=== PATIENT | female | born 1950 | race Caucasian/White ===

== ENCOUNTER 2021-01-17 16:14 | Emergency (ER) | payer MEDICARE, OTHER, SELFPAY ==
[2021-01-17 16:26] VITALS: BP 117/70; PULSE 74; RESP 18; TEMP 36.7; O2SAT 97; BMI 31.8
--- NOTE | 2021-01-17 16:32 | XRR_ITS ---
PROCEDURE INFORMATION: Exam: XR Right Ankle Exam date and time: 01/17/2021 4:35 PM Age: 70 years old Clinical indication: Injury or trauma; Fall; Blunt trauma; Ankle; Right; Additional info: Right ankle injury and pain TECHNIQUE: Imaging protocol: XR Right ankle. Views: 3 or more views. Total images: 3 COMPARISON: No relevant prior studies available. FINDINGS: Bones/joints: No visible acute osseous abnormality, fracture, subluxation, or dislocation. No radiographically visible joint effusion. Ankle mortise intact. Soft tissues: Soft tissue swelling over the lateral malleolus. XR/XR ankle RT min 3V* [id number] IMPRESSION: 1. Soft tissue swelling over the lateral malleolus. 2. No visible fracture.
--- NOTE | 2021-01-17 16:33 | ED_ITS ---
HPI - Extremity Problem General: Chief complaint: Extremity Injury, Lower Stated complaint: R ANKLE INJURY Time Seen by Provider: 01/17/21 16:32 History of Present Illness: HPI Narrative: Patient is a 70-year-old female comes to the ED with a right ankle injury. Patient says she was on her Gator and stepped off to get out of it and felt her right ankle pop and then had some pain. She now has tenderness and swelling right ankle. She rates the pain an 8 out of 10. Associated symptoms: Deny chest pain, fever(s) or rash Review of Systems Const: Denies: fever(s), chills or fatigue Eyes: Denies: change in vision or eye discomfort ENMT: Denies: throat pain, odynophagia, nasal discharge or nasal congestion Card: Denies: chest pain, palpitations, edema, swelling of feet/ankles, dyspnea on exertion or orthopnea Resp: Denies: dyspnea, productive cough or non-productive cough GI: Denies: abdominal pain, nausea, vomiting, diarrhea, constipation or hematochezia : Denies: flank pain, dysuria or hematuria Musc: Reports: extremity pain (right ankle) and extremity swelling (right ankle); Denies: neck pain or back pain Skin/Breast: Denies: rash or new lesions Neuro: Denies: headache(s), numbness in extremities or weakness in extremities Physical Exam Const: COMMON NORMALS: no acute distress, patient oriented x3 and alert GENERAL APPEARANCE: cooperative and comfortable HENMT: COMMON NORMALS: normocephalic HEAD & SCALP: normocephalic MOUTH: Normal oral and palatal mucosa present THROAT: posterior oropharynx normal and uvula midline Neck/C-Spine: COMMON NORMALS: supple GENERAL: Yes normal visual inspection Resp: COMMON NORMALS: normal respiratory effort, No retractions, No use of accessory muscles and clear to auscultation bilaterally AUSCULTATION: clear to auscultation bilaterally Cardio: COMMON NORMALS: regular rate, regular rhythm, S1 normal heart sound present, S2 normal heart sound present, No gallops present (Cardio), No clicks present (Cardio), No murmurs present (Cardio) and Peripheral pulses 2+ throughout RATE: regular rate RHYTHM: regular rhythm HEART SOUNDS: S1 normal heart sound present and S2 normal heart sound present PERIPHERAL PULSES: Peripheral pulses 2+ throughout GI: COMMON NORMALS: Normal to inspection, nondistended, normoactive bowel sounds present, Soft to palpation, non-tender and no masses PALPATION: Yes Soft to palpation : COMMON NORMALS: Yes no CVA tenderness BLADDER/KIDNEY EXAM: Yes no CVA tenderness Back/Pelvis: COMMON NORMALS: no CVA tenderness Extremity: GENERAL: Yes normal exam except as noted RIGHT LOWER EXTREMITY: Yes foot & digits Right ankle: Yes inspection (no visible deformity. swelling around lateral malleolus.), Yes palpation (tenderness around lateral malleolus.), Yes ROM (limited due to pain) and Yes neurovascular exam (intact) Neuro: COMMON NORMALS: patient oriented x3 and moves all extremities SENSORIUM/ORIENTATION: Yes alert Skin: GENERAL SKIN EXAM: dry skin Course Vital Signs: Vital signs: Vital Signs Temperature 98.1 F 01/17/21 16:26 Pulse Rate 74 01/17/21 16:26 Respiratory Rate 18 01/17/21 16:26 Blood Pressure 117/70 01/17/21 16:26 Pulse Oximetry 97 01/17/21 16:26 MDM - Extremity (Nontraumatic) Imaging Data^: Xray Ortho: Attestation: I personally reviewed and interpreted this imaging study as follows: My impression: right ankle xray-no acute fractures or findings. Discharge Plan Discharge Patient Disposition: Home Clinical Impression: Ankle sprain and strain Condition: Stable Discharge Orders: Discharge ED (Routine); Ordered 01/17/21 Ordered By: Live Rowell Referrals: Samuel Ryan, [Primary Care Provider] - Discharge Diet: Regular Discharge Activity: Increase activity as tolerated and Use walker/crutches as instructed Patient Instructions: Ankle Sprain (ED) Activity Restrictions/Additional Instructions: Follow-up with medical provider as directed. Use crutches to help ambulate and limit weightbearing for the next 2 to 3 days. Rest, ice and elevate right foot. Take [id number] ibuprofen or Aleve for pain. Return to the ER or your medical provider if condition worsens. Please read and understand discharge instructions. If any questions, please ask. Coding Level of Care Code ED Home Visit Field Care Manager for Cheryl Fwd Exam Comprehensive
== END 2021-01-17 17:17 | disposition home or self-care (01) ==
PROVIDERS: Emergency Provider Physician Assistant; PCP Family Medicine
DX: S93.401A Sprain of unspecified ligament of right ankle, initial encounter (principal); S96.911A Strain of unspecified muscle and tendon at ankle and foot level, right foot, initial encounter; X58.XXXA Exposure to other specified factors, initial encounter
CPT/HCPCS: 73610; 99283; E0114

== ENCOUNTER 2022-03-14 19:49 | Inpatient (IN) | payer MEDICARE, OTHER, SELFPAY ==
--- NOTE | 2022-03-14 19:52 | ECG_ITS ---
[facility] Test Date: 2022-03-15 Pat Name: Slime Teague Department: Room: 267 Gender: Female Register Of Deeds: : 1950 Requested By: Yunier Willett Order Number: [id number] Jose Eduardo MD: Noemi Lugo M.D. Measurements Intervals [place] Rate: 54 P: -2 ID: 162 QRS: 2 QRSD: 85 T: -3 QT: 452 QTc: 429 Interpretive Statements SINUS BRADYCARDIA Compared to ECG 03/15/2022 03:11:51 No significant changes Electronically Signed On 03-15-2022 22:52:57 CDT by Noemi Lugo M.D. [id number]
--- NOTE | 2022-03-14 19:52 | XRR_ITS ---
PROCEDURE INFORMATION: Exam: XR Chest Exam date and time: 03/14/2022 8:08 PM Age: 71 years old Clinical indication: Chest wall pain; Additional info: Cp TECHNIQUE: Imaging protocol: Radiologic exam of the chest. Views: 1 view. COMPARISON: No relevant prior studies available. FINDINGS: Lungs: Lungs are unremarkable. Pleural spaces: No pneumothorax and no evident pleural fluid. Heart/Mediastinum: See Vasculature finding. Vasculature: Aortic calcifications are noted. Mediastinal width and heart size are within normal limits. Bones/joints: Bones show no acute findings. XR/XR chest 1V portable [id number] IMPRESSION: No acute findings.
[2022-03-14 19:57] VITALS: BP 147/84; PULSE 78; RESP 18; TEMP 36.1; O2SAT 96; BMI 30.1
--- NOTE | 2022-03-14 20:21 | W.ED.GENADLT ---
HPI - General Adult General: Chief complaint: Recheck/Abnormal Lab/Rx Stated complaint: DR sent over due to blood work and EKG Time Seen by Provider: 03/14/22 20:14 History of Present Illness: Patient is a 71-year-old female with no significant past medical history presents emergency room for concerns of elevated troponin. On Friday, patient reporrted lightheaded and had a bout of chest pressure. Earlier today, patient went to see her PCP and had routine blood work that was done found to have a troponin to 256. Patient was also noted to have an abnormal EKG he was told to come emergency room. Patient tells me that she has not had any chest pressure since Friday. Patient denies any cough, no sore throat, palpitation, nausea/vomiting diarrhea melena/medic easier. Patient reports external fatigue and shortness of breath this week. No other focal complaints at this time. No prior history of cardiac history, no family history cardiac history, no pleuritic chest pain, stabbing chest pain radiation to the back, no recent immobilization or surgery. Onset: 4 days ago of chest pressure, troponin abnormal x 1 day Duration:ongoing Location:home Severity:moderate Associated symptoms: Reports chest pain; Deny dyspnea, nausea, rash, palpitations or vomiting Review of Systems Const: Denies: fever(s) or chills Eyes: Denies: change in vision ENMT: Denies: mouth pain Card: Reports: chest pain; Denies: palpitations Resp: Denies: dyspnea or non-productive cough GI: Denies: abdominal pain, nausea, vomiting or diarrhea : Denies: dysuria Musc: Denies: extremity pain Skin/Breast: Denies: rash or new lesions Neuro: Reports: other (+light-headedness); Denies: weakness in extremities Psych: Reports: other (Normal mood) Danny/Lymph: Denies: easy bruising PFSH ED PFSH: Medical History (Updated 03/17/22 @ 09:12 by Noemi Lugo MD) Ankle sprain HTN (hypertension) Social History (Updated 03/15/22 @ 15:53 by Noemi Lugo MD) Smoking and tobacco status: never smoked Alcohol intake: never Substance/Drug Use: never Physical Exam Const: COMMON NORMALS: alert HENMT: COMMON NORMALS: atraumatic HEAD & SCALP: atraumatic MOUTH: moist mucous membranes not abnormal Eye: COMMON NORMALS: EOMs intact bilaterally and conjunctivae normal CONJUNCTIVA: Yes conjunctivae normal Neck/C-Spine: COMMON NORMALS: full ROM and supple Resp: COMMON NORMALS: normal respiratory effort and clear to auscultation bilaterally AUSCULTATION: clear to auscultation bilaterally Cardio: COMMON NORMALS: regular rate RATE: regular rate OTHER: 2+ radial pulses b/l GI: COMMON NORMALS: Soft to palpation and non-tender PALPATION: Yes Soft to palpation Extremity: COMMON NORMALS: full ROM Neuro: SENSORIUM/ORIENTATION: Yes alert MOTOR EXAM: No Abnormal motor strength present and Other motor observations present (no focal motor deficits) Psych: COMMON NORMALS: speech normal SPEECH: Yes normal speech MOOD & AFFECT: Yes euthymic mood Course Vital Signs: Vital signs: Vital Signs Temperature 98.4 F 03/17/22 07:26 Pulse Rate 60 03/17/22 07:26 Respiratory Rate 12 03/17/22 07:26 Blood Pressure 103/66 03/17/22 07:26 Pulse Oximetry 95 03/17/22 07:26 [facility] - General Adult Medical Decision Making 71-year-old female without any significant past medical history presents emergency room with lightheadedness and chest pressure on Friday. Hemodynamically stable. EKG nonischemic currently. Troponin 259 similar to outpatient blood workup. S/p ASA and lovenox. Currently chest pain free. Disposition: admission Lab Data : 03/17/22 02:48 03/17/22 02:48 Radiology Impressions Chest X-Ray 03/14/22 19:52 IMPRESSION: No acute findings. Laboratory Results WBC 10.0 10^3/uL (4.0-10.0) 03/14/22 20:28 RBC 4.44 10^6/uL (4.1-5.3) 03/14/22 20:28 Hgb 14.0 g/dL (11.5-15.3) 03/14/22 20:28 Hct 39.7 % (37.0-47.0) 03/14/22 20:28 MCV 89.4 fl (81-99) 03/14/22 20:28 MCH 31.5 pg (28.0-34.0) 03/14/22 20:28 MCHC 35.3 g/dL (30.0-36.0) 03/14/22: RDW 12.5 % (12.1-15.1) 03/14/22: Plt Count 317 10^3/cmm (130-400) 03/14/22 MPV 10.0 fL (7.4-10.4) 03/14/22: Neut % (Auto) 49.8 % 03/14/22: Lymph % (Auto) 37.7 % 03/14/22: [place] % (Auto) 9.3 % 03/14/22: Eos % (Auto) 2.7 % 03/14/22 Baso % (Auto) 0.4 % 03/14/22 Neut # (Auto) 4.96 10^3/uL (1.8-7.7) 03/14/22 Lymph # (Auto) 3.8 10^3/uL (0.8-4.8) 03/14/22 Ashe # (Auto) 0.9 10^3/uL (0.2-0.9) 03/14/22 Eos # (Auto) 0.3 10^3/uL (0.0-0.8) 03/14/22 Baso # (Auto) 0.0 10^3/uL (0.0-0.1) 03/14/22 Nucleated RBC % (auto) 0 % 03/14/22 Nucleated RBCs # 0.0 /100WBC 03/14/22 Sodium 137 mmol/L (136-145) 03/14/22: Potassium 3.8 mmol/L (3.5-5.1) 03/14/22: Chloride 102 mmol/L (98-107) 03/14/22: Carbon Dioxide 24 mmol/L (22-29) 03/14/22 Anion Gap 14.8 (5-19) 03/14/22: BUN 17 mg/dL (8-23) 03/14/22: Creatinine 0.7 mg/dL (0.5-0.9) 03/14/22 GFR Calculation Not Reportable 06/23/22 20:28 Glucose 84 mg/dL (65-115) 03/14/22 20:28 Calculated Osmolality 285 mOsm/kg (285-295) 03/14/22 20:28 Calcium 8.7 mg/dL (8.5-10.5) 03/14/22 20:28 Total Bilirubin 0.4 mg/dL (0.15-1.2) 03/14/22 20:28 AST 21 U/L (0-32) 03/14/22 20:28 ALT 19 U/L (0-33) 03/14/22 20:28 Alkaline Phosphatase 113 IU/L (35-105) H 03/14/22 20:28 Troponin T Baseline 259 ng/L (0-10) H* 03/14/22 20:28 NT-Pro-B Natriuret Pep 84 pg/mL (0-125) 03/14/22 20:28 Total Protein 7.2 g/dL (6.6-8.7) 03/14/22 20:28 Albumin 4.2 g/dL (3.5-5.2) 03/14/22 20:28 Globulin 3.0 g/dL (1.3-4.6) 03/14/22 20:28 Imaging Data Other Imaging: Radiologist's impression: [employer] [address] XRay Report Signed Patient: Slime Teague Unit #: [id number] : 1950 Age/Sex: 71 / F ADM Date: 03/14/22 Loc: ER Room/Bed: Attending Dr: Ordering Provider/Ordering MD: Yunier Willett MD Date of Service: 03/14/22 Procedure(s): XR chest 1V portable [id number] Accession Number(s): [id number] Report Number: [id number] PROCEDURE INFORMATION: Exam: XR Chest Exam date and time: 03/14/2022 8:08 PM Age: 71 years old Clinical indication: Chest wall pain; Additional info: Cp TECHNIQUE: Imaging protocol: Radiologic exam of the chest. Views: 1 view. COMPARISON: No relevant prior studies available. FINDINGS: Lungs: Lungs are unremarkable. Pleural spaces: No pneumothorax and no evident pleural fluid. Heart/Mediastinum: See Vasculature finding. Vasculature: Aortic calcifications are noted. Mediastinal width and heart size are within normal limits. Bones/joints: Bones show no acute findings. XR/XR chest 1V portable 19403 IMPRESSION: No acute findings. ? Dictated By: Daniel Farris MD Signed By: Daniel Farris MD Signed Date/Time: 03/14/222135 DD/ 07 Discharge Plan Discharge Patient Disposition: Admitted As Inpatient Admit Provider: Roberth Davis Clinical Impression: Non-ST elevation ME (NSTEMI), Chest pain Condition: Stable Discharge Diet: Cardiac Discharge Activity: Increase activity as tolerated Coding Level of Care Code ED Table Assembler Metal for Chg Fwd Exam Comprehensive
[2022-03-14 20:35] LABS: Basophils % 0.4 %; Eosinophils # 0.3 10^3/uL (0.0-0.8); Eosinophils % 2.7 %; Hematocrit 39.7 % (37.0-47.0); Lymphocytes # 3.8 10^3/uL (0.8-4.8); Lymphocytes % 37.7 %; Mean Corpuscular HGB Conc 35.3 g/dL (30.0-36.0); Mean Corpuscular Hemoglobin 31.5 pg (28.0-34.0); Mean Corpuscular Volume 89.4 fl (81-99); Monocytes # 0.9 10^3/uL (0.2-0.9); Monocytes % 9.3 %; Neutrophils # 4.96 10^3/uL (1.8-7.7); Neutrophils % 49.8 %; Nucleated Red Blood Cells % 0 %; Platelet Count 317 10^3/cmm (130-400); Red Blood Count 4.44 10^6/uL (4.1-5.3); Red Cell Distribution Width 12.5 % (12.1-15.1)
[2022-03-14 20:36] VITALS: BP 154/71; PULSE 68; RESP 18; O2SAT 97
--- NOTE | 2022-03-14 20:48 | USCV_ITS ---
Slime Teague Age: 71 Gender: F : 1950 Exam Date: 03/14/2022 23:52 Ordering Phys: Roberth Davis MD Technologist: FAMILIA [place] [facility] [place]: Chest pain. BP: 166 / 68 HR: 61 Rhythm: Sinus Technical Quality: Adequate MEASUREMENTS (Male / Female) Normal Values 2D ECHO LV Diastolic Diameter PLAX 3.5 cm 4.2 - 5.9 / 3.9 - 5.3 cm LV Systolic Diameter PLAX 2.1 cm IVS Diastolic Thickness 1.3 cm 0.6 - 1.0 / 0.6 - 0.9 cm IVS Systolic Thickness 1.7 cm LVPW Diastolic Thickness 0.9 cm 0.6 - 1.0 / 0.6 - 0.9 cm LVPW Systolic Thickness 1.2 cm LVOT Diameter 1.8 cm LV Ejection Fraction 2D Teich 71.1 % LV Ejection Fraction MOD 2C 80.5 % LV Ejection Fraction 2C AL 81.1 % LA Diameter 3.5 cm LA Width 3.5 cm LA Height 5.4 cm RA Width 5.1 cm RA Height 5.9 cm Aorta at Sinotubular Diameter 2.6 cm IVC Diameter 1.3 cm M-MODE Aortic Annulus Diameter 2.9 cm LA Ao Ratio MM 1.3 MV E Point Septal Separation 0.3 cm DOPPLER AV Peak Velocity 99.0 cm/s LVOT Peak Velocity 101.0 cm/s AV Area Cont Eq vti 2.6 cm squared AV Area Cont Eq pk 2.6 cm squared MV Peak Velocity 108.0 cm/s MV Area PHT 3.0 cm squared Mitral E to A Ratio 0.9 MV E' Velocity 45.0 cm/s Mitral E to MV E' Ratio 8.8 Mitral E to LV E' Lateral Ratio 7.8 Mitral E to LV E' Septal Ratio 10.1 TR Peak Velocity 294.0 cm/s TR Peak Gradient 34.6 mmHg TV Peak E Velocity 53.0 cm/s Right Atrial Pressure 10.0 mmHg Pulmonary Artery Systolic Pressu 44.6 mmHg PV Peak Velocity 95.0 cm/s RV Acceleration Time 0.1 s RV Ejection Time 0.4 s RV AcT/ET 0.3 FINDINGS Left Ventricle Normal left ventricular size, systolic function and wall thickness, with no regional wall motion abnormalities. Left ventricular ejection fraction is estimated at 70 %. Normal diastolic function. Right Ventricle Normal right ventricular size and systolic function. Right ventricular systolic pressure 41 mmHg. Right Atrium Normal right atrial size. Left Atrium Upper normal left atrial size. Mitral Valve Structurally normal mitral valve. No mitral valve stenosis. Mild mitral valve regurgitation. Aortic Valve Structurally normal trileaflet aortic valve. No aortic valve stenosis. Trace to mild aortic valve regurgitation. Tricuspid Valve Structurally normal tricuspid valve. No tricuspid valve stenosis. Mild to moderate tricuspid valve regurgitation. Pulmonic Valve Structurally normal pulmonic valve. No pulmonary valve stenosis. Trace pulmonary valve regurgitation. Pericardium No pericardial effusion. Aorta Normal size aortic root and proximal ascending aorta. IVC Normal IVC dimension with >50% respiratory change of the inferior vena cava. CONCLUSIONS 1. Normal left ventricular size, systolic function and wall thickness, with no regional wall motion abnormalities. Left ventricular ejection fraction is estimated at 70 %. Normal diastolic function. 2. Normal right ventricular size and systolic function. 3. Mild to moderate tricuspid valve regurgitation. 4. Trace to mild aortic valve regurgitation. 5. Mild mitral valve regurgitation. 6. Mild pulmonary hypertension with pulm artery pressure estimated 41 mmHg. 7. No prior similar studies to compare. Noemi Lugo MD (Electronically Signed) Final Date: 15 March 2022 13:46 S
--- NOTE | 2022-03-14 20:48 | PC.NURSE ---
Report made with elder abuse hotline
--- NOTE | 2022-03-14 20:49 | P.HP_ITS ---
Providers/Chief Complaint Primary Care Provider: Samuel Ryan DO Chief Complaint: DR sent over due to blood work and EKG History of Present Illness Slime Teague is a 71 year old female with no significant past medical history was sent by the primary care physician for evaluation of elevated troponin. When I talked to the patient she was complaining of mild chest discomfort more of a pressure-like started this Friday it was accompanied with radiation to the left shoulder, and she has lately also experience worsening fatigue. Currently she is denying any palpitation diaphoresis, fever cough shortness of breath, nausea vomiting. Upon arrival in the ER she was worked up for above-mentioned: Pertinent imaging studies: X-ray chest: No acute findings EKG: Sinus rhythm Labs: WBC 10, H&H:14/39 , plt : 317 , serum sodium 137 serum potassium 3.8, BUN/ serum creatinine:17/ 0.7 HbA1c 6.6, lipid panel: T , total cholesterol:205 , LDL cholesterol: 113 , HDL :58 Troponin: 268, 259 proBNP:84 Review of Systems General: Reports: 10 or more systems reviewed and unremarkable except in HPI and below Narrative: 67-year-old currently not in acute distress being admitted for chest pain evaluation Const: Denies: fever(s), chills, body aches, change in appetite or diaphoresis Card: Denies: palpitations, edema, swelling of feet/ankles, dyspnea on exertion, orthopnea or leg pain with exertion Resp: Denies: dyspnea, productive cough, wheezing or pain on inspiration GI: Denies: abdominal pain, nausea, vomiting, diarrhea or constipation : Denies: flank pain Musc: Denies: back pain, extremity pain or extremity swelling Neuro: Denies: headache(s), difficulty walking or confusion Medications/Allergies Home Medications Medication Instructions Recorded Confirmed Last Taken Type fluoxetine 20 mg capsule 20 mg PO DAILY 03/14/22 03/14/22 03/14/22 08:00 History Allergies Allergy/AdvReac Type Severity Reaction Status Date / Time No Known Allergies Allergy Verified 01/17/21 16:26 PFSH Acute PFSH: Medical History Ankle sprain Social History Smoking and tobacco status: current every day smoker Alcohol intake: never Substance/Drug Use: never Vitals/I&O/Wt Last Vital Signs Temp 97.0 F L 03/14/22 19:57 Pulse 68 03/14/22 20:36 Resp 18 03/14/22 20:36 BP 154/71 03/14/22 20:36 Pulse Ox 97 03/14/22 20:36 Weight last 48 hrs Weight 77.111 kg Physical Exam Const: COMMON NORMALS: patient oriented x3 HENMT: COMMON NORMALS: normocephalic and atraumatic HEAD & SCALP: normocephalic and atraumatic Resp: COMMON NORMALS: clear to auscultation bilaterally AUSCULTATION: clear to auscultation bilaterally Cardio: COMMON NORMALS: regular rate, regular rhythm, S1 normal heart sound present, S2 normal heart sound present, No gallops present (Cardio), No murmurs present (Cardio), No rub (Cardio) and Peripheral pulses 2+ throughout RATE: regular rate RHYTHM: regular rhythm HEART SOUNDS: S1 normal heart sound present and S2 normal heart sound present PERIPHERAL PULSES: Peripheral pulses 2+ throughout GI: COMMON NORMALS: Normal to inspection, nondistended, normoactive bowel sounds present, Soft to palpation, non-tender, No hepatosplenomegaly present and no masses AUSCULTATION: Yes normoactive bowel sounds PALPATION: Yes Soft to palpation and Yes No hepatosplenomegaly present RECTAL EXAM: deferred Extremity: COMMON NORMALS: no clubbing, cyanosis or edema and no pedal edema Neuro: COMMON NORMALS: patient oriented x3 Data : 03/14/22 20:28 03/14/22 20:28 A&P Assessment and plan (1) Non-ST elevation NV (NSTEMI): Status: Acute (2) Chest pain: Status: Acute Plan 71 year old female with no significant past medical history was sent by the primary care physician for evaluation of elevated troponin. When I talked to the patient she was complaining of mild chest discomfort more of a pressure-like started this Friday it was accompanied with radiation to the left shoulder, and she has lately also experience worsening fatigue. Currently she is denying any palpitation diaphoresis, fever cough shortness of breath, nausea vomiting. Assessment: NSTEMI: It is quite possible that she had an event early during this week and c urrently troponin is on the downward trend. Dyslipidemia. Plan: Follow 2D echo Follow repeat HbA1c Currently on ACS protocol (continue therapeutic Lovenox, aspirin statin beta- taylor, sublingual nitro as needed ) Amlodipine 5 mg po daily Cardiology On Board CODE STATUS: Full code DVT prophylaxis: On Lovenox Attestations Medical Necessity Statement*: Patient is to in hospital for management of NSTEMI. Anticipated length of stay greater than 2 midnight. Time Spent in Patient Care: Greater than 35 minutes (>than 50% of time spent in counselling and/or direct pt care on unit) . Coding Level of Care Code Acute Electrical Troubleshooter for g Fwd Exam Detailed Diagnoses Non-ST elevation NV (NSTEMI) I21.4 Chest pain R07.9
[2022-03-14 21:04] LABS: Alanine Aminotransferase 19 U/L (0-33); Albumin Level 4.2 g/dL (3.5-5.2); Alkaline Phosphatase 113 IU/L (35-105); Aspartate Amino Transferase 21 U/L (0-32); Blood Urea Nitrogen 17 mg/dL (8-23); Calcium 8.7 mg/dL (8.5-10.5); Carbon Dioxide 24 mmol/L (22-29); Chloride 102 mmol/L (98-107); Creatinine Clr Calc Pharmacy 62.5007; Glucose 84 mg/dL (65-115); NT Pro B Type Natriuretic Pept 84 pg/mL (0-125); Osmolality Calculated 285 mOsm/kg (285-295); Sodium 137 mmol/L (136-145); Total Bilirubin 0.4 mg/dL (0.15-1.2); Total Protein 7.2 g/dL (6.6-8.7)
[2022-03-14 21:09] LABS: Anion Gap 14.8 (5-19); Potassium 3.8 mmol/L (3.5-5.1)
[2022-03-14 21:13] LABS: Troponin(5th) Baseline 259 ng/L (0-10)
--- NOTE | 2022-03-14 21:52 | ECG_ITS ---
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 Measurements Intervals [place] Rate: 66 P: 51 NH: 151 QRS: 37 QRSD: 77 T: 45 QT: 414 QTc: 434 Interpretive Statements SINUS RHYTHM POSSIBLE LEFT ATRIAL ENLARGEMENT [-0.1mV P-WAVE IN V1/V2] SEPTAL MYOCARDIAL INFARCTION , OF INDETERMINATE AGE [40+ ms Q WAVE IN V1/V2] No previous ECG available for comparison Electronically Signed On 03-14-2022 22:31:06 CDT by Scott Huntley M.D. [email or web address] [id number]
[2022-03-14] MEDS: aspirin 325 mg Tablet PO (22:04)
[2022-03-14] MEDS: atorvastatin 40 mg Tablet PO (22:05)
[2022-03-14] MEDS: enoxaparin 80 mg/0.8 mL Syringe SUBCUT (22:05)
[2022-03-14 22:07] VITALS: BP 161/75; PULSE 65; RESP 16; O2SAT 98
[2022-03-14 22:43] VITALS: BMI 32.8
[2022-03-14] MEDS: metoprolol tartrate 25 mg Tablet 12.5 MG PO (22:45)
[2022-03-14 22:47] VITALS: BP 166/68; PULSE 63; RESP 23; TEMP 36.8; O2SAT 99
[2022-03-14 23:09] VITALS: PULSE 61
[2022-03-14 23:37] LABS: Troponin 5 2HR 247.7 ng/L (0-10); Troponin 5 2HR Delta -11.3 ABS# (0-10)
[2022-03-15] VITALS (8 sets, daily range): BP systolic 102–120; BP diastolic 60–79; PULSE 56–63; RESP 14–22; TEMP 36.3–36.9; O2SAT 95–98
--- NOTE | 2022-03-15 01:52 | ECG_ITS ---
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 Measurements Intervals [place] Rate: 56 P: 56 AR: 158 QRS: 51 QRSD: 89 T: 58 QT: 451 QTc: 437 Interpretive Statements SINUS BRADYCARDIA POSSIBLE LEFT ATRIAL ENLARGEMENT [-0.1mV P-WAVE IN V1/V2] Compared to ECG 03/14/2022 20:34:16 Sinus rhythm no longer present Myocardial infarct finding no longer present Electronically Signed On 03-15-2022 23:13:35 CDT by Noemi Lugo M.D. [id number]
[2022-03-15 03:48] LABS: Basophils # 0.1 10^3/uL (0.0-0.1); Basophils % 0.6 %; Eosinophils # 0.3 10^3/uL (0.0-0.8); Eosinophils % 3.9 %; Hematocrit 39.9 % (37.0-47.0); Hemoglobin 13.9 g/dL (11.5-15.3); Lymphocytes % 38.4 %; Mean Corpuscular HGB Conc 34.8 g/dL (30.0-36.0); Mean Corpuscular Hemoglobin 31.2 pg (28.0-34.0); Mean Corpuscular Volume 89.7 fl (81-99); Monocytes # 0.7 10^3/uL (0.2-0.9); Monocytes % 9.1 %; Neutrophils # 3.75 10^3/uL (1.8-7.7); Neutrophils % 47.7 %; Nucleated Red Blood Cells % 0 %; Platelet Count 294 10^3/cmm (130-400); Red Blood Count 4.45 10^6/uL (4.1-5.3); Red Cell Distribution Width 12.7 % (12.1-15.1); White Blood Count 7.9 10^3/uL (4.0-10.0)
[2022-03-15 04:17] LABS: Alanine Aminotransferase 16 U/L (0-33); Albumin Level 3.8 g/dL (3.5-5.2); Alkaline Phosphatase 105 IU/L (35-105); Anion Gap 12.1 (5-19); Aspartate Amino Transferase 23 U/L (0-32); Blood Urea Nitrogen 15 mg/dL (8-23); Calcium 8.6 mg/dL (8.5-10.5); Carbon Dioxide 26 mmol/L (22-29); Chloride 105 mmol/L (98-107); Globulin 2.8 g/dL (1.3-4.6); Glucose 104 mg/dL (65-115); Magnesium 2.2 mg/dL (1.7-2.3); Osmolality Calculated 289 mOsm/kg (285-295); Potassium 4.1 mmol/L (3.5-5.1); Sodium 139 mmol/L (136-145); Thyroid Stimulating Hormone 2.65 uIU/mL (0.27-4.20); Total Bilirubin 0.6 mg/dL (0.15-1.2); Total Protein 6.6 g/dL (6.6-8.7)
[2022-03-15 04:22] LABS: Troponin 5 6HR 194.8 ng/L (0-10)
[2022-03-15 04:35] LABS: Estmated Average Glucose 137; Hemoglobin A1C 6.4 % (4.0-6.0)
[2022-03-15] MEDS: enoxaparin 80 mg/0.8 mL Syringe SUBCUT ×2 (09:22→20:50)
[2022-03-15] MEDS: metoprolol tartrate 25 mg Tablet 12.5 MG PO ×2 (09:23→20:49)
[2022-03-15] MEDS: amlodipine 5 mg Tablet PO (09:23)
[2022-03-15] MEDS: aspirin 81 mg EC Tablet PO (09:23)
--- NOTE | 2022-03-15 13:35 | PM.CONSULT ---
Providers/Reason For Consult Consulting Physician/Specialty*: Dr. Lugo, cardiology Reason for Consult*: NSTEMI Attending Physician: Delia Nice MD Primary Care Provider: Samuel Ryan DO History of Present Illness History of Present Illness Slime Teague is a 71 year old female with no prior h/o CAD, CHF, HTN, DM-2 or dyslipidemia. 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 She has felt tired and fatigued ever since. She went to Dr. Ryan and EKG and troponin was done. She was sent to ER for further evaluation. No palpitation diaphoresis, fever cough shortness of breath, nausea vomiting. Upon arrival in the ER, X-ray chest: No acute findings. EKG: Sinus rhythm/sinus bradycardia with no significant ST-T wave changes Labs: WBC 10, H&H:14/39 , plt : 317 , serum sodium 137 serum potassium 3.8, BUN/ serum creatinine:17/ 0.7 HbA1c 6.4, lipid panel: T , total cholesterol:205 , LDL cholesterol: 113 , HDL :58. Troponin: 268--> 259-->195. proBNP:84 She is complaining of mild chest discomfort while eating today. Review of Systems General: Reports: 10 or more systems reviewed and unremarkable except in HPI and below Narrative: 67-year-old currently not in acute distress being admitted for chest pain evaluation Const: Denies: fever(s), chills, body aches, change in appetite or diaphoresis Card: Denies: palpitations, edema, swelling of feet/ankles, dyspnea on exertion, orthopnea or leg pain with exertion Resp: Denies: dyspnea, productive cough, wheezing or pain on inspiration GI: Denies: abdominal pain, nausea, vomiting, diarrhea or constipation : Denies: flank pain Musc: Denies: back pain, extremity pain or extremity swelling Neuro: Denies: headache(s), difficulty walking or confusion Medications/Allergies Home Medications Medication Instructions Recorded Confirmed Last Taken Type fluoxetine 20 mg capsule 20 mg PO DAILY 03/14/22 03/14/22 03/14/22 08:00 History hydrocortisone 1 % topical cream 1 applic TOPICAL BID PRN 03/15/22 03/15/22 03/13/22 21:00 History (Cortisone (hydrocortisone)) Allergies Allergy/AdvReac Type Severity Reaction Status Date / Time No Known Allergies Allergy Verified 01/17/21 16:26 Current Medications Generic Name Dose Route Start Last Admin Trade Name Trevin PRN Reason Stop Dose Admin Amlodipine Besylate 5 mg 03/15/22 09:00 03/15/22 09:23 Amlodipine 5 Mg Tablet PO 5 mg DAILY KOLE Administration Aspirin 81 mg 03/15/22 09:00 03/15/22 09:23 Aspirin 81 Mg Ec Tablet PO 81 mg DAILY KOLE Administration Atorvastatin Calcium 40 mg 03/14/22 21:00 03/14/22 22:05 Atorvastatin 40 Mg Tablet PO 40 mg BEDTIME KOLE Administration Enoxaparin Sodium 80 mg 03/15/22 09:00 03/15/22 09:22 Enoxaparin 80 Mg/0.8 Ml Syringe SUBCUT 80 mg Q12H KOLE Administration Metoprolol Tartrate 12.5 mg 03/14/22 21:00 03/15/22 09:23 Metoprolol Tartrate 25 Mg Tablet PO 12.5 mg BID@0900,2100 KOLE Administration PFSH Acute PFSH: Medical History Ankle sprain Social History (Updated 03/15/22 @ 15:53 by Noemi Lugo MD) Smoking and tobacco status: never smoked Alcohol intake: never Substance/Drug Use: never Vitals/I&O/Wt Last Vital Signs Temp 97.7 F 03/15/22 08:00 Pulse 63 03/15/22 08:00 Resp 16 03/15/22 08:00 BP 120/79 03/15/22 08:00 Pulse Ox 97 03/15/22 08:00 03/14/22 03/15/22 03/15/22 22:59 06:59 14:59 Intake Total 360 / 360 Balance 360 / 360 Weight last 48 hrs Weight 185 lb 3.2 oz Weight 170 lb Physical Exam Narrative: GENERAL: obese woman laying in bed in no acute distress HEENT: Extraocular movement intact. No pallor or icterus. NECK: central trachea, No JVD. No carotid bruit. CARDIOVASCULAR SYSTEM: S1-S2 regular. No murmur rubs or gallops. RESPIRATORY SYSTEM: Chest clear to auscultation. No wheezes, rhonchi or rubs heard. No use of accessory muscles. ABDOMEN: Soft, nontender and nondistended. Normal bowel sounds present. EXTREMITIES: No cyanosis or clubbing or edema. No signs of chronic venous insufficiency. 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 No focal neurological deficits. SKIN: Normal turgor and temperature. PSYCH: Normal insight and judgment. Data : 03/15/22 03:39 03/15/22 03:39 Other Labs: Baseline at 2 hours to 45 and at 6 hours 195. NT proBNP 84. Lipid panel with total cholesterol 205, triglyceride 171, LDL 113 and HDL 58. TSH 2.65. A&P Assessment and plan (1) Non-ST elevation [place] (NSTEMI): -Plan for LHC in morning Risks and benefits were discussed with the patients. Alternate management options were discussed with the patient as well. Possible complications including risk of heart attack stroke and , coronary perforation, arrhythmia, cardiac tamponade in urgent CABG were discussed with the patient as well. Status: Acute (2) Elevated hemoglobin A1c: Status: Acute (3) Anxiety: Status: Acute Consult Attestations Time Spent in Patient Care: 16 - 35 minutes Coding Level of Care Code Acute Rn Internship for [facility] Tato Diagnoses Non-ST elevation [place] (NSTEMI) I21.4 Elevated hemoglobin A1c R73.09 Anxiety F41.9
--- NOTE | 2022-03-15 14:05 | P.PN_ITS ---
Subjective Subjective: Seen this morning. Patient is awaiting cardiology consult. She is currently n.p.o. and chest pain-free. No acute events overnight. Vitals/I&O/Wt Last Vital Signs Temp 98.5 F 03/15/22 12:00 Pulse 56 L 03/15/22 12:00 Resp 16 03/15/22 12:00 BP 102/66 03/15/22 12:00 Pulse Ox 98 03/15/22 12:00 03/14/22 03/15/22 03/15/22 22:59 06:59 14:59 Intake Total 360 / 360 Balance 360 / 360 Weight last 48 hrs Weight 84.005 kg Weight 77.111 kg Physical Exam Narrative: General: Alert oriented x3, patient seen sitting up in bed appearing comfortable at this time. HEENT: Normocephalic, atraumatic, EOMI, breathing room air Cardio: Regular rate rhythm, normal S1-S2, Respiratory: Good bilateral air entry, no wheezes no rhonchi appreciated GI: Abdomen soft, nontender, nondistended, bowel sounds + Behavior: Appropriate and cooperative Extremities: No lower extremity edema edema, no cyanosis Data : 03/15/22 03:39 03/15/22 03:39 A&P Assessment and plan (1) Non-ST elevation [place] (NSTEMI): Status: Acute (2) Chest pain: Status: Acute Plan 71 year old female with no significant past medical history was sent by the primary care physician for evaluation of elevated troponin.? When I talked to the patient she was complaining of mild chest discomfort more of a pressure-like started this Friday it was accompanied with radiation to the left shoulder, and she has lately also experience worsening fatigue. Currently she is denying any palpitation diaphoresis, fever cough shortness of breath, nausea vomiting. Assessment: NSTEMI: It is quite possible that she had an event early during this week and currently troponin is on the downward trend. Dyslipidemia. Plan: Follow 2D echo Follow repeat HbA1c Currently on ACS protocol (continue therapeutic Lovenox, aspirin statin beta- taylor, sublingual nitro as needed ) Amlodipine 5 mg po daily Cardiology On Board CODE STATUS: Full code DVT prophylaxis: On Lovenox N.p.o. at midnight for angio in a.m potentially. Attestations Medical Necessity Statement*: Patient will be staying in the hospital for greater than 48 hours for management of NSTEMI. 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
[2022-03-15] MEDS: hydrocortisone 2.5% cream 28 gm 1 APPLIC TOPICAL (15:34)
[2022-03-15] MEDS: pantoprazole DR 40 mg Tablet PO (15:35)
[2022-03-15] MEDS: calcium carbonate 500 mg Chew Tablet PO (15:35)
[2022-03-15] MEDS: sodium chloride 0.9% 1,000 ML 50 ML IV (20:50)
[2022-03-15] MEDS: atorvastatin 40 mg Tablet PO (20:50)
[2022-03-16] VITALS (108 sets, daily range): BP systolic 111–153; BP diastolic 52–77; PULSE 50–151; RESP 7–33; TEMP 36.6–36.9; O2SAT 94–99
[2022-03-16 03:57] LABS: Basophils % 0.5 %; Eosinophils # 0.3 10^3/uL (0.0-0.8); Eosinophils % 4.8 %; Hemoglobin 13.3 g/dL (11.5-15.3); Lymphocytes # 2.9 10^3/uL (0.8-4.8); Lymphocytes % 44.5 %; Mean Corpuscular HGB Conc 34.1 g/dL (30.0-36.0); Mean Corpuscular Volume 90.9 fl (81-99); Mean Platelet Volume 9.9 fL (7.4-10.4); Monocytes # 0.6 10^3/uL (0.2-0.9); Monocytes % 9.1 %; Neutrophils # 2.64 10^3/uL (1.8-7.7); Neutrophils % 40.9 %; Nucleated Red Blood Cells % 0 %; Platelet Count 274 10^3/cmm (130-400); Red Blood Count 4.29 10^6/uL (4.1-5.3); Red Cell Distribution Width 12.7 % (12.1-15.1); White Blood Count 6.5 10^3/uL (4.0-10.0)
[2022-03-16 04:22] LABS: Alanine Aminotransferase 23 U/L (0-33); Albumin Level 3.5 g/dL (3.5-5.2); Alkaline Phosphatase 103 IU/L (35-105); Anion Gap 10.4 (5-19); Aspartate Amino Transferase 24 U/L (0-32); Blood Urea Nitrogen 15 mg/dL (8-23); Calcium 8.5 mg/dL (8.5-10.5); Carbon Dioxide 27 mmol/L (22-29); Chloride 106 mmol/L (98-107); Globulin 2.8 g/dL (1.3-4.6); Glucose 116 mg/dL (65-115); Osmolality Calculated 290 mOsm/kg (285-295); Potassium 4.4 mmol/L (3.5-5.1); Sodium 139 mmol/L (136-145); Total Bilirubin 0.8 mg/dL (0.15-1.2); Total Protein 6.3 g/dL (6.6-8.7)
[2022-03-16] MEDS: diphenhydrAMINE 50 mg Capsule PO (07:03)
--- NOTE | 2022-03-16 07:15 | XACV_ITS ---
Exam Room: [facility] Ht: 160 cm Wt: 84 kg BSA: 1.96 m2 Gender: Female : 1950 Exam Priority: Routine Procedure(s): Procedure Description: Diagnostic procedure Procedure Description: PCI procedure Procedure Description: Drug Eluting Coronary Stent Procedure Description: PTCA Procedure Description: Miscellaneous Procedure Description: ACT Procedure Description: Coronary Angiography Diagnostic Cath Status: Urgent Diagnostic Findings * 71-year-old woman presented with vague chest discomfort and left arm and forearm pain along with extreme fatigue that happened 4 to 5 days prior to presentation. Fifth generation Troponin T done at PCPs office was elevated and subsequently down trended from 268 to 195 at 6 hours. EKG showed sinus bradycardia with no significant ST-T wave changes. * Angiography shows a right coronary dominant system. * Normal-sized left anterior descending artery. Short eccentric hazy appearing 60 to 70% stenosis (AVELINO 3 flow). * Short left main with no stenosis. * Normal caliber circumflex artery with one major obtuse marginal without any stenosis. * Normal sized right coronary artery with minor luminal irregularities. * Case was discussed and images were reviewed with Dr. Huntley. PCI Status: Elective PCI Indication: NSTE - ACS Interventional Findings * Procedure detail: We engaged left main artery with XB 3.0 guide catheter. IV heparin was administered to maintain ACT above 250s. Angiogram showed haziness consistent with possible thrombus given troponin elevation and symptoms. 0.014 run-through guidewire was used to cross proximal LAD stenosis. We predilated stenosis with 2.75 x 12 mm noncompliant balloon. This was followed by placement of 3.0 x 15 mm resolute Cecelia drug-eluting stent. At this time final angiogram was performed that showed excellent stent expansion, no residual stenosis and AVELINO-3 flow. Guidewire and guide catheter were removed. 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 * Proximal Left Anterior Descendin% stenosis treated with a AB TREK 2.75X12 RX BALLOON, and MDVictor M R CECELIA 3.0X15 SPENCER. Conclusions 1. Severe 2. , 3. hazy proximal LAD stenosis s/p successful revascularization with SPENCER x1. 4. Proximal Left Anterior Descending was treated with a Balloon, and Drug Eluting Stent. Recommendations * Statin and aspirin 81mg lifelong, if tolerated. * Continue Plavix 75mg p.o. daily for at least one year. * Order echocardiogram. * Outpatient cardiology follow-up in 4 weeks. Interventional RX Recommendation: PCI w/o planned CABG Diagnostic RX Recommendation: PCI w/o planned CABG Anticoagulation: Heparin LV EDP: 26 mmHg Left Ventriculography Findings: * Left Ventriculogram not performed to minimize contrast use. Pressures Phase:Rest AO : 100 / 62 ( 81 ) @ 9:21:00 AM 157 / 72 ( 103 ) @ 9:31:00 AM 157 / 54 ( 94 ) @ 9:31:00 AM 141 / 70 ( 96 ) @ 9:34:00 AM 146 / 77 ( 106 ) @ 9:58:00 AM LV : 157 / 6 / 26 @ 9:30:00 AM 157 / 3 / 26 @ 9:31:00 AM Hemodynamic Findings LVEDP is 26 mmHg. There is no gradient across the aortic valve. Valves Phase:DefaultPhase AV : 0.0 @ 9:19:21 AM AV Mean Gradient: 0.0 @ 9:19:21 AM Clinical Evaluation EBL: 5mL-10mL Procedural Details Procedure Consent Obtained. Admit Source: In Patient. Pre-Procedure Time Out. Identified patient by full name and date of as verbalized by the patient/guarantor. Does the consent match the physician's order: Yes. Accurate & Complete Informed Consent: Yes. Inpatient/Outpatient History & Physical on Chart: Yes. If H&P is completed, is and addenduem needed: N/A; If yes, is the addendum complete: N/A. Visualize and Verify Site with Patient/Guarantor: N/A. Relevant Radiology Images available: N/A. The risks, benefits, and alternatives of sedation and/or procedure were discussed by physician. The patient agrees to continue. Procedure started. [facility] Clinical Fraility Score: 2: Well. Certified Corporate Travel Executive Indications:NSTEMI. Chest Pain Symptom Assessment: Atypical Angina. Correct patient, site and procedure confirmed by cath team. Current diagnosis: NSTEMI. PERRLA. Strong, equal hand bench patternmaker metal bilaterally. Lungs clear x 5 lobes. IV Site on Arrival: 20 gauge in the right anticubital. IV Fluids: 0.9% NaCl at KVO. 550 mL infused prior to filling station laborer. Pre Procedural Pulses: right radial was 3+. Pre Procedural Pulses: bilateral dorsalis pedis was 3+. Oxygen started at 2liters/min via nasal canula. right groin was prepped with chloroprep then draped in the usual sterile fashion. right radial was prepped with chloroprep then draped in the usual sterile fashion. Physician notified. Baseline sample Acquired. HR: 51 BPM. Physician arrived. Physician scrubbed in. Immediate Pre-Procedure Time Out. Correct Patient: Yes; Correct Procedure: Yes; Correct Site: Yes; Correct Patient Position: Yes; Correct Supplies: Yes; Dried Flammable Prep: Yes; Blood Products Available: N/A. Lidocaine 1% infiltrated to the right radial. Arterial access obtained. A 5 ecuadorean TIG catheter in over wire. Multiple views taken of left coronary artery. Catheter redirected to the RCA. Multiple views taken of right coronary artery. EDP Sample taken: LV 157/6,26; HR: 54 BPM; SpO2: 98%. Pullback taken: LV 157/3,26; AO 157/72(103); Mean: 0mmHg, Peak to Peak: 0mmHg, SEP: 12sec/min; HR: 53 BPM; SpO2: 98%. Catheter removed over the standard wire. Dr Huntley notified to come review cine films. Side port of sheath attached to Normal Saline flush at KVO to maintain patency. Dr. Huntley scrubbed in to perform intervention. 6 ecuadorean XB 3 guide catheter was inserted over the wire. Runthrough guidewire was advanced through the guide catheter to lesion in the Prox LAD. Balloon inserted to lesion in the prox LAD. Inflation number : 1 A AB TREK 2.75X12 RX BALLOON was prepped and advanced across the Prox LAD , then inflated to 12 SALOMON for 0:16 seconds. Balloon out. Stent inserted to lesion in the prox LAD. Inflation Number : 2 A JIMENA Valentine CECELIA 3.0X15 SPENCER -Lot Number# [id number] Exp 01/03/25 was prepped and advanced across the Prox LAD. The stent was deployed at 12 SALOMON for 0:17 seconds. Stent balloon out over wire. Results checked. ACT drawn. Results 352 seconds. Therapeutic limits - pre-heparin administration 90-150 seconds and monitoring heparin during a vascular procedure >250 seconds. Wire out. Guide catheter out over standard wire. Post Procedure: Pulses reassessed and unchanged. PERRLA. Strong, equal hand bench patternmaker metal bilaterally. No VTE prophylaxis required. Medication's Wasted: Lidocaine 1% = 3 mL. Medication's Wasted: Nitro = 49.8 mg. Total IV fluids: 133 mL. 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 Complications: none. Estimated blood loss: 5mL-10mL. Responsiveness - Normal response to verbal stimuli; alert and oriented, PERRLA. Airway - Unaffected, no intervention required; spontaneous ventilation. Circulation: W/N/L, pulses unchanged. Nausea/Vomiting: No. Procedure completed. Patient transferred by wheelchair to ICU. A TR Band was successful obtaining hemostatsis at the Right Radial artery insertion site. Medication's Wasted: Heparin = 2000 u. Vital chart was stopped. Access Site Site: Right Radial artery Sheath Size: 6 Fr Hemostasis Method: TR Band Hemostasis Success: Successful Procedure Medications Start: 8:06 AM Stop: 8:06 AM Medication: Versed Amount: 1 mg Route: I.V. Start: 8:06 AM Stop: 8:06 AM Medication: Fentanyl Amount: 25 mcg Route: I.V. Start: 8:14 AM Stop: 8:14 AM Medication: Nitrogylcerin Amount: 200 mcg Route: I.A. Start: 8:15 AM Stop: 8:15 AM Medication: Heparin Amount: 5000 units Route: I.V. Start: 8:27 AM Stop: 8:27 AM Medication: Versed Amount: 1 mg Route: I.V. Start: 8:54 AM Stop: 8:54 AM Medication: Versed Amount: 1 mg Route: I.V. Start: 8:54 AM Stop: 8:54 AM Medication: Fentanyl Amount: 25 mcg Route: I.V. Start: 8:55 AM Stop: 8:55 AM Medication: Heparin Amount: 4000 units Route: I.V. Start: 9:03 AM Stop: 9:03 AM Medication: Aggrastat 12.5 mg/250 mL Amount: 42 ml Route: I.V. bolus Start: 9:04 AM Stop: 9:04 AM Medication: Aggrastat 12.5 mg/250 mL Amount: 15.1 ml/hr Route: I.V. bolus Start: 9:10 AM Stop: 9:10 AM Medication: Plavix Amount: 600 mg Route: P.O. I, the attending physician, have reviewed and verified all procedure medications. Yes, all medications given per verbal order History/Risk Factors Hypertension: No Dyslipidemia: No Peripheral Arterial Disease (PAD): No Myocardial Infarction (CO): No Obesity: Yes Renal Disease: No Tobacco Use: Current/Recent(w/in 1 year) Prior Interventions PCI: No CABG: No Valve Surgery: No Report Signatures Interventional Workflow Finalized by Scott Huntley MD on 03/26/2022 11:50 AM Diagnostic Workflow Finalized by Noemi Lugo MD on 03/19/2022 04:31 PM
--- NOTE | 2022-03-16 08:06 | W.PM.OPSUD ---
Surgery/Procedure H&P Update DATE OF PROCEDURE: March 16, 2022 DATE H&P PERFORMED: 03/15/22 H&P UPDATE INFORMATION: I have reviewed H&P completed within last 30 days, I have examined patient prior to procedure and No changes to prior documentation PREOP DIAGNOSIS: NSTEMI PRIMARY INDICATION FOR PROCEDURE: NSTEMI PLANNED PROCEDURE: Operation Date: 03/16/22 08:00 Proposed Procedures p Cardiac Catheterization(Left) - Noemi Lugo MD PATIENT REASSESSED PRIOR TO SEDATION, WITH NO CHANGE NOTED: Yes PHYSICAL EXAM: alert, oriented x 3, clear to auscultation bilaterally and regular rate & rhythm AIRWAY EVAL/ANESTHESIA PLAN: normal airway, ASA III, Monitored Anesthesia, Local Anesthesia, Risks, benefits & alternatives of sedation and/or procedure discussed and Patient agrees to continue as planned
--- NOTE | 2022-03-16 09:59 | PC.NURSE ---
ICU nurse received pathet from woods laborer staff at 0930. Patient is alert and oriented to person, place, time, and situation. BP: 139/69, HR: 53, SPO2: 97, Temp: 97.8. RIght radial puncture site covered with TR band and no signs of bleeding present.
[2022-03-16] MEDS: sodium chloride 0.9% 1,000 ML 100 ML IV (10:31)
[2022-03-16] MEDS: amlodipine 5 mg Tablet PO (10:34)
[2022-03-16] MEDS: aspirin 81 mg EC Tablet PO (10:34)
[2022-03-16] MEDS: pantoprazole DR 40 mg Tablet PO (10:34)
--- NOTE | 2022-03-16 14:29 | PM.PN ---
Subjective Subjective: Seen this morning. She is status post catheterization procedure. Currently on tirofiban drip. Doing well and has no complaints at this time. Vitals/I&O/Wt Last Vital Signs Temp 97.8 F 03/16/22 10:00 Pulse 58 L 03/16/22 10:40 Resp 15 03/16/22 10:40 BP 134/74 03/16/22 10:40 Pulse Ox 97 03/16/22 10:40 03/15/22 03/16/22 03/16/22 22:59 06:59 14:59 Intake Total 240 / 840 684.167 / 684.167 Balance 240 / 840 684.167 / 684.167 Weight last 48 hrs Weight 84.005 kg Weight 77.111 kg Physical Exam Narrative: General: Alert oriented x3, no acute distress HEENT: Normocephalic, atraumatic, EOMI, breathing room air Cardio: Regular rate rhythm, normal S1-S2, Respiratory: Good bilateral air entry, no wheezes no rhonchi appreciated GI: Abdomen soft, nontender, nondistended, bowel sounds + Behavior: Appropriate and cooperative Extremities: No lower extremity edema edema, no cyanosis, TR band in place on right wrist Data : 03/16/22 03:50 03/16/22 03:50 A&P Assessment and plan (1) Anxiety: Status: Acute (2) Elevated hemoglobin A1c: Status: Acute (3) Non-ST elevation [place] (NSTEMI): Status: Acute (4) Chest pain: Status: Acute Plan 71 year old female with no significant past medical history was sent by the primary care physician for evaluation of elevated troponin.? When I talked to the patient she was complaining of mild chest discomfort more of a pressure-like started this Friday it was accompanied with radiation to the left shoulder, and she has lately also experience worsening fatigue. Currently she is denying any palpitation diaphoresis, fever cough shortness of breath, nausea vomiting. Assessment: NSTEMI: It is quite possible that she had an event early during this week and currently troponin is on the downward trend. Dyslipidemia. Plan: Echo complete. No wall motion abnormalities noted. Patient went for angiogram today and received 1 stent to proximal LAD. Continue aspirin, Plavix, statin, beta-taylor Amlodipine 5 mg po daily Cardiology On Board CODE STATUS: Full code DVT prophylaxis: On Lovenox Attestations Medical Necessity Statement*: Continue to monitor in hospital today. Potential discharge in a.m. if patient continues to do well. 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
--- NOTE | 2022-03-16 14:39 | PC.NURSE ---
TR band removed: Dressed site with clear tegaderm and gauze. site is unremarkable. No signs of bleeding 0930- 13mL 1000- 11mL 1030- 9mL 1100- 7mL 1120- 5mL 1150- 3 mL 1330- 0 mL
--- NOTE | 2022-03-16 15:48 | PC.NURSE ---
Report called to Joy in [facility]. Patient transferred to room 275.
[2022-03-16] MEDS: acetaminophen 325 mg Tablet 650 MG PO (19:08)
--- NOTE | 2022-03-16 19:15 | PC.NURSE ---
Right wrist cath site assessed. Dressing is dry and intact, site is soft, no hematoma present.
[2022-03-16] MEDS: metoprolol tartrate 25 mg Tablet 12.5 MG PO (21:23)
[2022-03-16] MEDS: atorvastatin 40 mg Tablet PO (21:23)
[2022-03-17] VITALS (7 sets, daily range): BP systolic 103–128; BP diastolic 56–72; PULSE 58–80; RESP 12–26; TEMP 36.7–37.3; O2SAT 91–95
[2022-03-17 03:10] LABS: Basophils % 0.6 %; Eosinophils # 0.3 10^3/uL (0.0-0.8); Eosinophils % 3.8 %; Hematocrit 36.7 % (37.0-47.0); Hemoglobin 12.6 g/dL (11.5-15.3); Lymphocytes # 2.5 10^3/uL (0.8-4.8); Mean Corpuscular HGB Conc 34.3 g/dL (30.0-36.0); Mean Corpuscular Volume 90.4 fl (81-99); Mean Platelet Volume 9.8 fL (7.4-10.4); Monocytes # 0.7 10^3/uL (0.2-0.9); Monocytes % 9.8 %; Neutrophils # 3.32 10^3/uL (1.8-7.7); Neutrophils % 48.5 %; Nucleated Red Blood Cells % 0 %; Platelet Count 264 10^3/cmm (130-400); Red Blood Count 4.06 10^6/uL (4.1-5.3); Red Cell Distribution Width 12.6 % (12.1-15.1); White Blood Count 6.8 10^3/uL (4.0-10.0)
[2022-03-17 03:29] LABS: Alanine Aminotransferase 25 U/L (0-33); Albumin Level 3.4 g/dL (3.5-5.2); Alkaline Phosphatase 104 IU/L (35-105); Anion Gap 13.3 (5-19); Aspartate Amino Transferase 34 U/L (0-32); Blood Urea Nitrogen 13 mg/dL (8-23); Carbon Dioxide 24 mmol/L (22-29); Chloride 107 mmol/L (98-107); Globulin 2.8 g/dL (1.3-4.6); Glucose 102 mg/dL (65-115); Osmolality Calculated 290 mOsm/kg (285-295); Potassium 4.3 mmol/L (3.5-5.1); Sodium 140 mmol/L (136-145); Total Bilirubin 0.5 mg/dL (0.15-1.2); Total Protein 6.2 g/dL (6.6-8.7)
[2022-03-17] MEDS: amlodipine 5 mg Tablet PO (09:01)
[2022-03-17] MEDS: clopidogrel 75 mg Tablet PO (09:02)
[2022-03-17] MEDS: aspirin 81 mg EC Tablet PO (09:02)
[2022-03-17] MEDS: pantoprazole DR 40 mg Tablet PO (09:02)
[2022-03-17] MEDS: metoprolol tartrate 25 mg Tablet 12.5 MG PO (09:02)
--- NOTE | 2022-03-17 09:08 | P.PN_ITS ---
Subjective Subjective: s/p SPENCER to Px LAD yesterday Medications: Reviewed: Yes Medication Review Details: Current Medications Acetaminophen (Acetaminophen 325 Mg Tablet) 650 mg PO Q6H PRN PRN Reason: Mild/Mod Pain Or Temp >/= 101 Last Admin: 03/16/22 19:08 Dose: 650 mg Documented by: Al Hydrox/Mg Hydrox/Simethicone (Snlf-Fiv-Dbxoijmdo-Yunior 30 Ml Udc) 30 ml PO Q15M PRN PRN Reason: INDIGESTION Amlodipine Besylate (Amlodipine 5 Mg Tablet) 5 mg PO DAILY [facility] Last Admin: 03/17/22 09:01 Dose: 5 mg Documented by: Aspirin (Aspirin 81 Mg Ec Tablet) 81 mg PO DAILY [facility] Last Admin: 03/17/22 09:02 Dose: 81 mg Documented by: Atorvastatin Calcium (Atorvastatin 40 Mg Tablet) 40 mg PO BEDTIME [facility] Last Admin: 03/16/22 21:23 Dose: 40 mg Documented by: Atropine Sulfate (Atropine 1 Mg/Ml Sdv 1 Ml) 0.5 mg IVP PRN PRN PRN Reason: Symptomatic bradycardia Bisacodyl (Bisacodyl 5 Mg Tablet) 10 mg PO DAILY PRN; Protocol PRN Reason: Constipation (see protocol) Calcium Carbonate (Calcium Carbonate 500 Mg Chew Tablet) 500 mg PO Q4H PRN PRN Reason: INDIGESTION Last Admin: 03/15/22 15:35 Dose: 500 mg Documented by: Clopidogrel Bisulfate (Clopidogrel 75 Mg Tablet) 75 mg PO DAILY [facility] Last Admin: 03/17/22 09:02 Dose: 75 mg Documented by: Fentanyl (Fentanyl 50 Mcg/Ml Inj 2ml) 50 mcg IVP PRN PRN PRN Reason: Prior to sheath removal Hydrocortisone (Hydrocortisone 2.5% Cream 28 Gm) 1 applic TOPICAL QID PRN PRN Reason: ITCHING Last Admin: 03/15/22 15:34 Dose: 1 applic Documented by: Sodium Chloride (Sodium Chloride 0.9%) 1,000 mls @ 100 mls/hr IV .Q10H [facility] Last Admin: 03/17/22 06:11 Dose: Not Given Documented by: Magnesium Hydroxide (Magnesium Hydroxide 30 Ml Udc) 30 ml PO DAILY PRN PRN Reason: CONSTIPATION Metoprolol Tartrate (Metoprolol Tartrate 25 Mg Tablet) 12.5 mg PO BID@0900,2100 [facility] Last Admin: 03/17/22 09:02 Dose: 12.5 mg Documented by: Naloxone HCl (Naloxone 0.4 Mg/Ml Sdv) 0.1 mg IVP Q2M PRN PRN Reason: RESPIRATORY RATE < 8/MIN Nitroglycerin (Nitroglycerin 0.4 Mg Sublingual Tablet) 0.4 mg SUBLINGUAL Q5M PRN PRN Reason: CHEST PAIN Ondansetron HCl (Ondansetron 2 Mg/Ml Sdv 2 Ml) 4 mg IVP Q8H PRN PRN Reason: vomiting, or N/V if npo Pantoprazole Sodium (Pantoprazole Dr 40 Mg Tablet) 40 mg PO DAILY [facility] Last Admin: 03/17/22 09:02 Dose: 40 mg Documented by: Temazepam (Temazepam 15 Mg Capsule) 15 mg PO BEDTIME PRN PRN Reason: INSOMNIA Vitals/I&O/Wt Last Vital Signs Temp 98.4 F 03/17/22 07:26 Pulse 60 03/17/22 07:26 Resp 12 03/17/22 07:26 BP 103/66 03/17/22 07:26 Pulse Ox 95 03/17/22 07:26 03/16/22 03/17/22 03/17/22 22:59 06:59 14:59 Intake Total 2180 / 3264.167 950 / 4214.167 Balance 2180 / 3264.167 950 / 4214.167 Weight last 48 hrs Weight 170 lb 3.2 oz Physical Exam Narrative: GENERAL: obese woman laying in bed in no acute distress HEENT: Extraocular movement intact. No pallor or icterus. NECK: central trachea, No JVD. No carotid bruit. CARDIOVASCULAR SYSTEM: S1-S2 regular. No murmur rubs or gallops. RESPIRATORY SYSTEM: Chest clear to auscultation. No wheezes, rhonchi or rubs heard. No use of accessory muscles. ABDOMEN: Soft, nontender and nondistended. Normal bowel sounds present. EXTREMITIES: No cyanosis or clubbing or edema. No signs of chronic venous insufficiency. AD OPERATIONS ASSOCIATE: Patient is alert oriented ?3. No focal neurological deficits. SKIN: Normal turgor and temperature. PSYCH: Normal insight and judgment. Data : 03/17/22 02:48 03/17/22 02:48 A&P Assessment and plan (1) Non-ST elevation NV (NSTEMI): Px LAD with hazy appearing 60-70% stenosis and underwent balloon angioplasty and SPENCER X 1 placement -continue ASA, plavix , statin -continue metoprolol succinate 12.5 mg on discahrge -NTG SL as needed -f/u with Aissatou in 1 week and with in 2 months -stable to be discharged today Status: Acute (2) HTN (hypertension): Patient's blood pressure is at goal. She has been compliant with her medications and denies having any side effects from medications. She was advised again on importance of salt restriction, DASH diet and exercise in managing her blood pressure. 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
--- NOTE | 2022-03-17 10:43 | PC.SOCIAL ---
IMM update IMM updated with patient. Verbalized an understanding. Copy Pg 2 provided. Initialled, dated, timed, and placed in chart.
--- NOTE | 2022-03-17 12:20 | PM.DCS ---
Discharge Providers Date of Admission: 03/14/22 20:41 Date of Discharge: March 17, 2022 Attending Provider at Admission: Roberth Davis MD Attending Provider at Discharge: Delia Nice MD Primary Care Provider: Samuel Ryan DO Diagnoses at Discharge Discharge Diagnosis (1) Non-ST elevation NM (NSTEMI): Status: Acute (2) HTN (hypertension): Status: Acute (3) Elevated hemoglobin A1c: Status: Acute (4) Anxiety: Status: Acute Reason for Visit Reason for Visit: DR sent over due to blood work and EKG Brief History: As per HPI Slime Teague is a 71 year old female with no significant past medical history was sent by the primary care physician for evaluation of elevated troponin.? When I talked to the patient she was complaining of mild chest discomfort more of a pressure-like started this Friday it was accompanied with radiation to the left shoulder, and she has lately also experience worsening fatigue. Currently she is denying any palpitation diaphoresis, fever cough shortness of breath, nausea vomiting. Upon arrival in the ER she was worked up for above-mentioned: Pertinent imaging studies: X-ray chest: No acute findings EKG: Sinus rhythm Labs: WBC 10, H&H:14/39 , plt : 317 , serum sodium 137 serum potassium 3.8, BUN/ serum creatinine:17/ 0.7 HbA1c 6.6, lipid panel: T , total cholesterol:205 , LDL cholesterol: 113 , HDL :58 Troponin: 268, 259 proBNP:84 Hospital Course Hospital Course 71 year old female with no significant past medical history was sent by the primary care physician for evaluation of elevated troponin.? When I talked to the patient she was complaining of mild chest discomfort more of a pressure-like started this Friday it was accompanied with radiation to the left shoulder, and she has lately also experience worsening fatigue. Currently she is denying any palpitation diaphoresis, fever cough shortness of breath, nausea vomiting. Admitted for NSTEMI. Went for cath and had stent placed to proximal LAD. Chest pain free today and doing better. DC home in stable condition. F/u with cards outpt. Physical Exam Narrative: General: Alert karen ented x3, no acute distress HEENT: N ormocephalic, atra umatic, EOMI, ila thing room air Car magali: Regular rate rhythm, normal S1- S2, Respiratory: G ood bilateral air entry, no wheezes no rhonchi appreci ated GI: Abdomen s oft, nontender, no ndistended, bowel sounds + Behavior: Appropriate and c ooperative Extremi ties: No lower ext remity edema edema , no cyanosis, no bleeding or hemato ma on right wrist. capillary refill hands <2 sec, hand s well perfused an d warm Discharge Data Studies Completed and Pending Completed Studies During Hospitalization Category Date Time Status XR chest 1V portable [id number] Stat Exams 03/14/22 19:52 Completed CV. 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 Laboratory Results WBC 6.8 10^3/uL (4.0-10.0) 03/17/22 02:48 RBC 4.06 10^6/uL (4.1-5.3) L 03/17/22 02:48 Hgb 12.6 g/dL (11.5-15.3) 03/17/22 02:48 Hct 36.7 % (37.0-47.0) L 03/17/22 02:48 MCV 90.4 fl (81-99) 03/17/22 02:48 MCH 31.0 pg (28.0-34.0) 03/17/22 02:48 MCHC 34.3 g/dL (30.0-36.0) 03/17/22 02:48 RDW 12.6 % (12.1-15.1) 03/17/22 02:48 Plt Count 264 10^3/cmm (130-400) 03/17/22 02:48 MPV 9.8 fL (7.4-10.4) 03/17/22 02:48 Neut % (Auto) 48.5 % 03/17/22 02:48 Lymph % (Auto) 37.0 % 03/17/22 02:48 [place] % (Auto) 9.8 % 03/17/22 02:48 Eos % (Auto) 3.8 % 03/17/22 02:48 Baso % (Auto) 0.6 % 03/17/22 02:48 Neut # (Auto) 3.32 10^3/uL (1.8-7.7) 03/17/22 02:48 Lymph # (Auto) 2.5 10^3/uL (0.8-4.8) 03/17/22 02:48 [place] # (Auto) 0.7 10^3/uL (0.2-0.9) 03/17/22 02:48 Eos # (Auto) 0.3 10^3/uL (0.0-0.8) 03/17/22 02:48 Baso # (Auto) 0.0 10^3/uL (0.0-0.1) 03/17/22 02:48 Nucleated RBC % (auto) 0 % 03/17/22 02:48 Nucleated RBCs # 0.0 /100WBC 03/17/22 02:48 Sodium 140 mmol/L (136-145) 03/17/22 02:48 Potassium 4.3 mmol/L (3.5-5.1) 03/17/22 02:48 Chloride 107 mmol/L (98-107) 03/17/22 02:48 Carbon Dioxide 24 mmol/L (22-29) 03/17/22 02:48 Anion Gap 13.3 (5-19) 03/17/22 02:48 BUN 13 mg/dL (8-23) 03/17/22 02:48 Creatinine 0.7 mg/dL (0.5-0.9) 03/17/22 02:48 GFR Calculation Not Reportable 03/17/22 02:48 Glucose 102 mg/dL (65-115) 03/17/22 02:48 Estimat Average Glucose 137 03/15/22 03:39 Hemoglobin A1c 6.4 % (4.0-6.0) H 03/15/22 03:39 Calculated Osmolality 290 mOsm/kg (285-295) 03/17/22 02:48 Calcium 8.0 mg/dL (8.5-10.5) L 03/17/22 02:48 Magnesium 2.2 mg/dL (1.7-2.3) 03/15/22 03:39 Total Bilirubin 0.5 mg/dL (0.15-1.2) 03/17/22 02:48 AST 34 U/L (0-32) H 03/17/22 02:48 ALT 25 U/L (0-33) 03/17/22 02:48 Alkaline Phosphatase 104 IU/L (35-105) 03/17/22 02:48 Troponin T Baseline 259 ng/L (0-10) H* 03/14/22 20:28 Troponin T 120 Minute 247.7 ng/L (0-10) H 03/14/22 22:59 Delta Troponin T -11.3 ABS# (0-10) L 03/14/22 22:59 Troponin T Hi Sens 6Hr 194.8 ng/L (0-10) H 03/15/22 03:39 Troponin T Hi Sens 6Hr Delta -64.2 ng/L (0-12) L 03/15/22 03:39 NT-Pro-B Natriuret Pep 84 pg/mL (0-125) 03/14/22 20:28 Total Protein 6.2 g/dL (6.6-8.7) L 03/17/22 02:48 Albumin 3.4 g/dL (3.5-5.2) L 03/17/22 02:48 Globulin 2.8 g/dL (1.3-4.6) 03/17/22 02:48 TSH 2.65 uIU/mL (0.27-4.20) 03/15/22 03:39 Vitals Last Vital Signs Temp 98.1 F 03/17/22 12:18 Pulse 80 03/17/22 12:18 Resp 16 03/17/22 12:18 BP 111/64 03/17/22 12:18 Pulse Ox 91 03/17/22 12:18 Discharge Plan Discharge Patient Disposition: Home Condition: Stable Prescriptions: New atorvastatin 40 mg Tablet 40 mg PO BEDTIME Qty: 30 3RF clopidogrel 75 mg Tablet 75 mg PO DAILY Qty: 30 3RF amlodipine 5 mg Tablet 5 mg PO DAILY Qty: 30 3RF aspirin 81 mg Tablet,Delayed Release (Dr/Ec) 81 mg PO DAILY Qty: 30 3RF pantoprazole 40 mg Tablet,Delayed Release (Dr/Ec) 40 mg PO DAILY Qty: 30 3RF nitroglycerin 0.4 mg Tablet, Sublingual 0.4 mg sublingual Q5M PRN (Reason: Chest Pain) Qty: 30 3RF metoprolol succinate 25 mg tablet extended release 24 hr 12.5 mg PO DAILY Qty: 15 3RF Continued fluoxetine 20 mg capsule 20 mg PO DAILY 0RF Cortisone (hydrocortisone) 1 % Cream 1 applic TOPICAL BID PRN (Reason: Itching) 0RF Discharge Orders: Discharge Order (Routine); Ordered 03/17/22 Ordered By: Delia Nice Referrals: Cherri Ordaz, CATALINO [Nurse Practitioner] - 4-7 days (PLESE CALL [phone] TO SET UP AN APPOINTMENT TO SEE CHERRI ORDAZ IN REGARDS TO LHC AND STENT. ) Samuel Ryan DO [Primary Care Provider] - 4-7 days (PLEASE CALL [phone] ON FRIDAY TO SET UP AN APPOINTMENT WITH DR RYAN. ) Noemi Jason MD [Physician] - 2 months (PLEASE CALL [phone] ON FRIDAY TO SET UP AN APPOINTMENT WITH DR. JASON.) Discharge Diet: Cardiac Discharge Activity: Increase activity as tolerated Patient Instructions: Metoprolol (By mouth), Nitroglycerin (By mouth), Aspirin (By mouth), Amlodipine (By mouth), Atorvastatin (By mouth), Clopidogrel (By mouth), Pantoprazole (By mouth), Type 2 Diabetes in Adults: New Diagnosis (DC), Chronic Hypertension (DC), Anxiety (DC), Opioid Safety Activity Restrictions/Additional Instructions: Do not lift anything more than 5 lbs for 1 week. Keep the site dry and clean Take medications as prescribed and follow up as scheduled. Discharge Attestations Time Spent in Discharge Care*: less than 30 min Quality Metrics Clinical Quality Measures [ No reported AMI, CVA or VTE this stay] Coding Level of Care Code Acute Chg FW DC note Diagnoses Non-ST elevation NM (NSTEMI) I21.4 HTN (hypertension) I10 Elevated hemoglobin A1c R73.09 Anxiety F41.9
== END 2022-03-17 12:50 | disposition home or self-care (01) | DRG 247 ==
LOC: ER 20:15 → MEDSURG 22:15 → ICU 03-16 09:50 → MEDSURG 03-16 16:04
PROVIDERS: Emergency Medicine; Internal Medicine; Internal Medicine Cardiovascular Disease; Admitting Provider Internal Medicine; Emergency Provider Emergency Medicine; PCP Family Medicine; Visit Provider Internal Medicine
PROC: 027034Z Dilation of Coronary Artery, One Artery with Drug-eluting Intraluminal Device, Percutaneous Approach (ICD-10-PCS; 2022-03-16 08:00)
DX: I21.4 Non-ST elevation (NSTEMI) myocardial infarction (principal); I25.10 Atherosclerotic heart disease of native coronary artery without angina pectoris; F17.200 Nicotine dependence, unspecified, uncomplicated; F41.9 Anxiety disorder, unspecified; I10 Essential (primary) hypertension; R73.09 Other abnormal glucose
CPT/HCPCS: 36415; 71045; 80053; 80061; 83036; 83735; 83880; 84443; 84484; 85025; 85347; 93005; 93306; 93452; 93458; 96360; 96372; 99152; 99153; 99285; C1725; C1769; C1874; C1887; C1894; C9600; J1644; J1650; J2250; J3010; J3490; J7030; Q0163; Q9967

== ENCOUNTER → 2022-03-26 08:23 | Outpatient (BNVA) | payer MEDICARE, OTHER, SELFPAY | PROVIDERS: PCP Family Medicine; Visit Provider Nurse Practitioner Family | DX: I25.10 Atherosclerotic heart disease of native coronary artery without angina pectoris (principal) | CPT/HCPCS: 36415; 80048; 99213; 99214 ==

== ENCOUNTER → 2022-05-14 14:16 | Outpatient (BNVA) | payer MEDICARE, OTHER, SELFPAY | PROVIDERS: PCP Family Medicine; Visit Provider Internal Medicine Cardiovascular Disease | DX: I25.10 Atherosclerotic heart disease of native coronary artery without angina pectoris (principal); I10 Essential (primary) hypertension; R73.09 Other abnormal glucose; F41.9 Anxiety disorder, unspecified | CPT/HCPCS: 99214 ==

== ENCOUNTER 2022-05-19 17:19 | Observation (INO) | payer MEDICARE, SELFPAY ==
[2022-05-19] VITALS (8 sets, daily range): BP systolic 116–139; BP diastolic 68–91; PULSE 56–78; RESP 14–19; TEMP 36.6; O2SAT 96–98; BMI 30.1
--- NOTE | 2022-05-19 17:27 | ECG_ITS ---
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 Measurements Intervals [place] Rate: 65 P: 55 MT: 158 QRS: 53 QRSD: 76 T: 56 QT: 410 QTc: 429 Interpretive Statements SINUS RHYTHM POSSIBLE LEFT ATRIAL ENLARGEMENT [-0.1mV P-WAVE IN V1/V2] INTERPRETATION BASED ON A DEFAULT AGE OF 40 YEARS Compared to ECG 03/15/2022 05:48:02 Sinus bradycardia no longer present Electronically Signed On 05-20-2022 7:24:29 CDT by Emile Blancas M.D. [id number]
--- NOTE | 2022-05-19 17:37 | XRR_ITS ---
PROCEDURE INFORMATION: Exam: XR Chest Exam date and time: 05/19/2022 5:55 PM Age: 71 years old Clinical indication: Pain; Chest pressure; Prior surgery; Surgery date: 6+ months; Surgery type: Stent; Additional info: Cp TECHNIQUE: Imaging protocol: Radiologic exam of the chest. Views: 1 view. COMPARISON: CR XR chest 1V portable [id number] 03/14/2022 8:08 PM FINDINGS: Lungs: Unremarkable. No consolidation. Pleural spaces: Unremarkable. No pleural effusion. No pneumothorax. Heart/Mediastinum: Unremarkable. No cardiomegaly. Bones/joints: Unremarkable. XR/XR chest 1V portable [id number] IMPRESSION: No acute findings.
--- NOTE | 2022-05-19 17:38 | W.ED.CHESTPA ---
HPI - Chest Pain General: Chief Complaint: Chest Pain Stated Complaint: chest pains Time Seen by Provider: 05/19/22 17:33 History of Present Illness: 71-year-old with history of CAD presents with chest pain. States this started approximately 4 hours ago. It radiates to the left side of the neck but denies any radiation to the back. Is not exertional or pleuritic. Denies any lower extremity pain or shortness of breath. Patient recently had stents placed at the end of March. Review of Systems Narrative: - CONSTITUTIONAL: Denies weight loss, fever and chills. - HEENT: Denies changes in vision and hearing. - RESPIRATORY: Denies SOB and cough. - CV: As above - GI: Denies abdominal pain, nausea, vomiting and diarrhea. - : Denies dysuria and urinary frequency. - MSK: Denies myalgia and joint pain. - SKIN: Denies rash and pruritus. - NEUROLOGICAL: Denies headache, weakness, numbness and syncope. - PSYCHIATRIC: Denies suicidal ideation PFS ED PFSH: Medical History Ankle sprain Atherosclerosis of coronary artery HTN (hypertension) Social History Smoking and tobacco status: never smoked Alcohol intake: never Physical Exam Narrative: EXAM NARRATIVE: - GENERAL: Alert and oriented x 3. No acute distress. Well-nourished. - EYES: EOMI. Anicteric. - HENT: Atraumatic, no C-spine tenderness. Moist mucous membranes. No scleral icterus. No cervical lymphadenopathy. No carotid thrills or bruits. - LUNGS: Clear to auscultation bilaterally. No accessory muscle use. Equal lung sounds bilaterally. No respiratory distress. - CARDIOVASCULAR: Regular rate and rhythm. No murmur. No JVD. - ABDOMEN: Soft, non-tender and non-distended. Negative CVA tenderness bilaterally, no rebound or guarding, negative Alexandre sign. No palpable masses. - EXTREMITIES: No edema. Non-tender. - SKIN: No rashes or lesions. Warm. - NEUROLOGIC: No meningismus or focal neurological deficits. CN II-XII grossly intact. - PSYCHIATRIC: Cooperative. Appropriate mood and affect. Course Vital Signs: Vital signs: Vital Signs Pulse Rate 60 05/19/22 19:01 Respiratory Rate 19 H 05/19/22 19:01 Blood Pressure 139/91 05/19/22 19:01 Pulse Oximetry 96 05/19/22 19:01 Oxygen Delivery Me thod 05/19/22 19:01 MDM - Chest Pain Medical Decision Making 71-year-old presents with chest pain. She had cardiac stents placed 2 months ago. Initial EKG and troponin do not reveal any acute ischemic change. D-dimer is elevated but CTA does not reveal any sign of PE or other acute abnormality. Remainder of lab work unremarkable. Remainder of lab work and imaging reviewed. Discussed with hospitalist and they agreed patient would benefit from admission. Patient admitted in stable condition. Further evaluation management per hospitalist team. Lab Data : 05/19/22 17:44 05/19/22 17:44 Radiology Impressions Chest X-Ray 05/19/22 17:37 IMPRESSION: No acute findings. Chest CTA 05/19/22 18:59 IMPRESSION: 1. Negative for pulmonary embolus. 2. Cardiomegaly. 3. Coronary artery atherosclerotic calcifications. 4. Scattered prominent mediastinal lymph nodes measuring up to 7.2 mm, nonspecific. 5. Moderate hiatal hernia. 6. Emphysematous changes suspected. 7. Bibasilar atelectasis. Laboratory Results WBC 9.3 10^3/uL (4.0-10.0) 05/19/22 17:44 RBC 4.50 10^6/uL (4.1-5.3) 05/19/22 17:44 Hgb 13.9 g/dL (11.5-15.3) 05/19/22 17:44 Hct 42.3 % (37.0-47.0) 05/19/22 17:44 MCV 94.0 fl (81-99) 05/19/22 17:44 MCH 30.9 pg (28.0-34.0) 05/19/22 17:44 MCHC 32.9 g/dL (30.0-36.0) 05/19/22 17:44 RDW 12.4 % (12.1-15.1) 05/19/22 17:44 Plt Count 302 10^3/cmm (130-400) 05/19/22 17:44 MPV 9.8 fL (7.4-10.4) 05/19/22 17:44 Neut % (Auto) 57.4 % 05/19/22 17:44 Lymph % (Auto) 30.3 % 05/19/22 17:44 [place] % (Auto) 7.4 % 05/19/22 17:44 Eos % (Auto) 4.1 % 05/19/22 17:44 Baso % (Auto) 0.5 % 05/19/22 17:44 Neut # (Auto) 5.31 10^3/uL (1.8-7.7) 05/19/22 17:44 Lymph # (Auto) 2.8 10^3/uL (0.8-4.8) 05/19/22 17:44 [place] # (Auto) 0.7 10^3/uL (0.2-0.9) 05/19/22 17:44 Eos # (Auto) 0.4 10^3/uL (0.0-0.8) 05/19/22 17:44 Baso # (Auto) 0.1 10^3/uL (0.0-0.1) 05/19/22 17:44 Nucleated RBC % (auto) 0 % 05/19/22 17:44 Nucleated RBCs # 0.0 /100WBC 05/19/22 17:44 D-Dimer 1.15 ug/mIFEU (0-0.59) H 05/19/22 17:44 Sodium 136 mmol/L (136-145) 05/19/22 17:44 Potassium 3.9 mmol/L (3.5-5.1) 05/19/22 17:44 Chloride 102 mmol/L (98-107) 05/19/22 17:44 Carbon Dioxide 23 mmol/L (22-29) 05/19/22 17:44 Anion Gap 14.9 (5-19) 05/19/22 17:44 BUN 20 mg/dL (8-23) 05/19/22 17:44 Creatinine 0.9 mg/dL (0.5-0.9) 05/19/22 17:44 GFR Calculation Not Reportable 05/19/22 17:44 Glucose 128 mg/dL (65-115) H 05/19/22 17:44 Calculated Osmolality 286 mOsm/kg (285-295) 05/19/22 17:44 Calcium 8.6 mg/dL (8.5-10.5) 05/19/22 17:44 Total Bilirubin 0.8 mg/dL (0.15-1.2) 05/19/22 17:44 AST 20 U/L (0-32) 05/19/22 17:44 ALT 19 U/L (0-33) 05/19/22 17:44 Alkaline Phosphatase 124 U/L (35-105) H 05/19/22 17:44 Troponin T Baseline 6 ng/L (0-10) 05/19/22 17:44 Total Protein 6.9 g/dL (6.6-8.7) 05/19/22 17:44 Albumin 3.9 g/dL (3.5-5.2) 05/19/22 17:44 Globulin 3.0 g/dL (1.3-4.6) 05/19/22 17:44 Lipase 39 U/L (13-60) 05/19/22 17:44 SARS-CoV-2 Ag (Rapid) Negative (Negative) 05/19/22 17:49 EKG Data EKG 1: Other EKG comments: Normal sinus rhythm, rate of 65, no sign of acute ischemia or other acute abnormality. Discharge Plan Discharge Condition: Stable Prescriptions: No Action aspirin 81 mg tablet,delayed release (DR/EC) 81 mg PO DAILY Qty: 30 6RF fluoxetine 20 mg capsule 20 mg PO DAILY hydrocortisone [Cortisone (hydrocortisone)] 1 % Cream 1 applic TOPICAL BID PRN (Reason: Itching) atorvastatin 40 mg Tablet 40 mg PO BEDTIME Qty: 30 3RF clopidogrel 75 mg Tablet 75 mg PO DAILY Qty: 30 3RF amlodipine 5 mg Tablet 5 mg PO DAILY Qty: 30 3RF pantoprazole 40 mg Tablet,Delayed Release (Dr/Ec) 40 mg PO DAILY Qty: 30 3RF nitroglycerin 0.4 mg Tablet, Sublingual 0.4 mg sublingual Q5M PRN (Reason: Chest Pain) Qty: 30 3RF metoprolol succinate 25 mg tablet extended release 24 hr 12.5 mg PO DAILY Qty: 15 3RF multivitamin Tablet 1 tab PO DAILY melatonin 3 mg Tablet 3 mg PO BEDTIME cranberry 400 mg Capsule 400 mg PO DAILY Rx Instructions: administer with a meal Referrals: Samuel Ryan DO [Primary Care Provider] - Coding Level of Care Code ED Activity Therapy Specialist for Chg Fwd
[2022-05-19 17:52] LABS: Basophils # 0.1 10^3/uL (0.0-0.1); Basophils % 0.5 %; Eosinophils # 0.4 10^3/uL (0.0-0.8); Eosinophils % 4.1 %; Hematocrit 42.3 % (37.0-47.0); Hemoglobin 13.9 g/dL (11.5-15.3); Lymphocytes # 2.8 10^3/uL (0.8-4.8); Lymphocytes % 30.3 %; Mean Corpuscular HGB Conc 32.9 g/dL (30.0-36.0); Mean Corpuscular Hemoglobin 30.9 pg (28.0-34.0); Mean Platelet Volume 9.8 fL (7.4-10.4); Monocytes # 0.7 10^3/uL (0.2-0.9); Monocytes % 7.4 %; Neutrophils # 5.31 10^3/uL (1.8-7.7); Neutrophils % 57.4 %; Nucleated Red Blood Cells % 0 %; Platelet Count 302 10^3/cmm (130-400); Red Cell Distribution Width 12.4 % (12.1-15.1); White Blood Count 9.3 10^3/uL (4.0-10.0)
[2022-05-19] MEDS: nitroglycerin 0.4 mg sublingual Tablet SUBLINGUAL ×2 (17:52→17:56)
[2022-05-19] MEDS: aspirin 81 mg Chew Tablet 324 MG PO (17:52)
[2022-05-19 18:07] LABS: D Dimer 1.15 ug/mIFEU (0-0.59)
[2022-05-19 18:26] LABS: Alanine Aminotransferase 19 U/L (0-33); Albumin Level 3.9 g/dL (3.5-5.2); Alkaline Phosphatase 124 U/L (35-105); Anion Gap 14.9 (5-19); Aspartate Amino Transferase 20 U/L (0-32); Blood Urea Nitrogen 20 mg/dL (8-23); Calcium 8.6 mg/dL (8.5-10.5); Carbon Dioxide 23 mmol/L (22-29); Chloride 102 mmol/L (98-107); Glucose 128 mg/dL (65-115); Lipase 39 U/L (13-60); Osmolality Calculated 286 mOsm/kg (285-295); Potassium 3.9 mmol/L (3.5-5.1); Sodium 136 mmol/L (136-145); Total Bilirubin 0.8 mg/dL (0.15-1.2); Total Protein 6.9 g/dL (6.6-8.7); Troponin(5th) Baseline 6 ng/L (0-10)
[2022-05-19 18:57] LABS: SARS Covid-2 Antigen Negative (Negative)
--- NOTE | 2022-05-19 18:59 | CTR_ITS ---
PROCEDURE INFORMATION: Exam: CTA Chest With Contrast Exam date and time: 05/19/2022 7:10 PM Age: 71 years old Clinical indication: Shortness of breath; Additional info: Pe TECHNIQUE: Imaging protocol: Computed tomographic angiography of the chest with contrast. 3D rendering (Not supervised by radiologist): MIP and/or 3D reconstructed images were created by the technologist. Radiation optimization: All CT scans at this facility use at least one of these dose optimization techniques: automated exposure control; mA and/or kV adjustment per patient size (includes targeted exams where dose is matched to clinical indication); or iterative reconstruction. Contrast material: OMNI 350; Contrast volume: 95 ml; Contrast route: INTRAVENOUS (IV); COMPARISON: CR (CHEST, ) 05/19/2022 5:55 PM RADIATION DOSE METRICS: Total DLP (mGy-cm): 256.29 FINDINGS: Pulmonary arteries: Normal. No pulmonary emboli. Aorta: Unremarkable. No aortic aneurysm. No aortic dissection. Lungs: Emphysematous changes suspected. Bibasilar atelectasis. Pleural spaces: Unremarkable. No pneumothorax. No pleural effusion. Heart: Cardiomegaly. Coronary artery atherosclerotic calcifications. Lymph nodes: Scattered prominent mediastinal lymph nodes measuring up to 7.2 mm, nonspecific. Diaphragm: Moderate hiatal hernia. Bones/joints: Unremarkable. No acute fracture. Soft tissues: Unremarkable. CT/CT angio chest PE protcl [id number] IMPRESSION: 1. Negative for pulmonary embolus. 2. Cardiomegaly. 3. Coronary artery atherosclerotic calcifications. 4. Scattered prominent mediastinal lymph nodes measuring up to 7.2 mm, nonspecific. 5. Moderate hiatal hernia. 6. Emphysematous changes suspected. 7. Bibasilar atelectasis.
[2022-05-19] MEDS: iohexol 350 mg/mL 100 mL Btl IV (19:13)
--- NOTE | 2022-05-19 19:22 | ECG_ITS ---
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 Measurements Intervals [place] Rate: 58 P: 61 NE: 169 QRS: 66 QRSD: 76 T: 59 QT: 442 QTc: 438 Interpretive Statements SINUS BRADYCARDIA POSSIBLE LEFT ATRIAL ENLARGEMENT [-0.1mV P-WAVE IN V1/V2] Possible SEPTAL MYOCARDIAL INFARCTION , OF INDETERMINATE AGE [40+ ms Q WAVE IN V1/V2] Compared to ECG 05/19/2022 17:27:55 Myocardial infarct finding now present Sinus rhythm no longer present Electronically Signed On 05-20-2022 7:27:44 CDT by Emile Blancas M.D. [id number]
[2022-05-19 19:53] LABS: Troponin 5 2HR 6.88 ng/L (0-10)
[2022-05-19 20:07] LABS: Troponin 5 2HR Delta 0.88 ABS# (0-10)
--- NOTE | 2022-05-19 20:38 | P.HP_ITS ---
Providers/Chief Complaint Primary Care Provider: Samuel Ryan DO Chief Complaint: chest pains History of Present Illness Slime Teague is a 71 year old female Medications/Allergies Home Medications Medication Instructions Recorded Confirmed Last Taken Type fluoxetine 20 mg capsule 20 mg PO DAILY 03/14/22 05/19/22 05/19/22 History hydrocortisone 1 % topical cream 1 applic topical BID PRN Itching 03/15/22 05/19/22 03/13/22 21:00 History (Cortisone (hydrocortisone)) amlodipine 5 mg tablet 5 mg PO DAILY #30 tabs 03/17/22 05/19/22 05/19/22 Rx atorvastatin 40 mg tablet 40 mg PO BEDTIME #30 tabs 03/17/22 05/19/22 05/18/22 Rx clopidogrel 75 mg tablet 75 mg PO DAILY #30 tabs 03/17/22 05/19/22 05/19/22 Rx metoprolol succinate 25 mg 12.5 mg PO DAILY #15 tabs 03/17/22 05/19/22 05/19/22 Rx tablet,extended release 24 hr nitroglycerin 0.4 mg sublingual 0.4 mg sublingual Q5M PRN Chest 03/17/22 05/19/22 05/19/22 Rx tablet Pain #30 tabs pantoprazole 40 mg tablet,delayed 40 mg PO DAILY #30 tabs 03/17/22 05/19/22 05/19/22 Rx release aspirin 81 mg tablet,delayed 81 mg PO DAILY #30 tabs 05/14/22 05/19/22 05/19/22 Rx release cranberry 400 mg capsule 400 mg PO DAILY 05/19/22 05/19/22 05/19/22 History melatonin 3 mg tablet 3 mg PO BEDTIME 05/19/22 05/19/22 05/18/22 History multivitamin 1 tab PO DAILY 05/19/22 05/19/22 05/19/22 History Allergies Allergy/AdvReac Type Severity Reaction Status Date / Time No Known Allergies Allergy Verified 01/17/21 16:26 PFSH Acute PFSH: Medical History Ankle sprain Atherosclerosis of coronary artery HTN (hypertension) Social History Smoking and tobacco status: never smoked Alcohol intake: never Vitals/I&O/Wt Last Vital Signs Pulse 60 05/19/22 19:01 Resp 19 H 05/19/22 19:01 BP 139/91 05/19/22 19:01 Pulse Ox 96 05/19/22 19:01 O2 Del Method 05/19/22 19:01 Weight last 48 hrs Weight 77.111 kg Data : 05/19/22 17:44 05/19/22 17:44 A&P Assessment and plan (1) Atherosclerosis of coronary artery: Status: Acute (2) HTN (hypertension): Status: Acute (3) Anxiety: Status: Acute (4) Chest pain: Status: Acute Plan Chest pain Cardiac echo February 2022 1. Normal left ventricular size, systolic function and wall ?thickness, with no regional wall motion abnormalities. Left ?ventricular ejection fraction is estimated at 70 %. Normal ?diastolic function. ?2. Normal right ventricular size and systolic function. ?3. Mild to moderate tricuspid valve regurgitation. ?4. Trace to mild aortic valve regurgitation. ?5.? Mild mitral valve regurgitation. ?6.? Mild pulmonary hypertension with pulm artery pressure ?estimated 41 mmHg. ?7. No prior similar studies to compare. Cardiac cath February 2022 * Angiography shows a right coronary dominant system. ? * Normal-sized left anterior descending artery.? Short eccentric hazy appearing 60 to 70% stenosis (AVELINO 3 flow). ? * Short left main with no stenosis. ? * Normal caliber circumflex artery with one major obtuse marginal without any stenosis. ? * Normal sized right coronary artery with minor luminal irregularities. hazy proximal LAD stenosis s/p successful revascularization with SPENCER x1. ? 4. Proximal Left Anterior Descending was treated with a Balloon, and Drug Eluting Stent. CTA chest 1. Negative for pulmonary embolus. 2. Cardiomegaly. 3. Coronary artery atherosclerotic calcifications. 4. Scattered prominent mediastinal lymph nodes measuring up to 7.2 mm, nonspecific. 5. Moderate hiatal hernia. 6. Emphysematous changes suspected. 7. Bibasilar atelectasis. Plan -Serial EKGs) troponins, telemetry monitoring -Aspirin, statin, Plavix, beta-taylor -Continue to monitor chest pain -We will discuss with cardiology in a.m. -Full code Lovenox for DVT prophylaxis Attestations Medical Necessity Statement*: Patient requires hospitalization, outpatient with observation for chest pain Coding Level of Care Code Acute Quenching Car Operator for [facility] Fwd Diagnoses Atherosclerosis of coronary artery I25.10 HTN (hypertension) I10 Anxiety F41.9 Chest pain R07.9
[2022-05-19 23:49] LABS: Troponin 5 6HR 6.87 ng/L (0-10)
[2022-05-20] VITALS (8 sets, daily range): BP systolic 105–141; BP diastolic 50–77; PULSE 58–67; RESP 15–17; TEMP 36.4–36.7; O2SAT 94–99
[2022-05-20] MEDS: atorvastatin 40 mg Tablet PO ×2 (00:08→20:11)
[2022-05-20] MEDS: enoxaparin 40 mg/0.4 mL Syringe SUBCUT (00:08)
[2022-05-20 00:26] LABS: Troponin 5 6HR Delta 0.87 ng/L (0-12)
[2022-05-20 05:33] LABS: Basophils # 0.1 10^3/uL (0.0-0.1); Basophils % 0.6 %; Eosinophils # 0.5 10^3/uL (0.0-0.8); Eosinophils % 6.6 %; Hematocrit 44.3 % (37.0-47.0); Hemoglobin 14.4 g/dL (11.5-15.3); Lymphocytes # 3.2 10^3/uL (0.8-4.8); Lymphocytes % 38.8 %; Mean Corpuscular HGB Conc 32.5 g/dL (30.0-36.0); Mean Corpuscular Volume 95.5 fl (81-99); Mean Platelet Volume 9.8 fL (7.4-10.4); Monocytes # 0.8 10^3/uL (0.2-0.9); Monocytes % 9.2 %; Neutrophils # 3.64 10^3/uL (1.8-7.7); Neutrophils % 44.7 %; Nucleated Red Blood Cells % 0 %; Platelet Count 287 10^3/cmm (130-400); Red Blood Count 4.64 10^6/uL (4.1-5.3); Red Cell Distribution Width 12.6 % (12.1-15.1); White Blood Count 8.2 10^3/uL (4.0-10.0)
[2022-05-20 05:57] LABS: Alanine Aminotransferase 17 U/L (0-33); Albumin Level 3.8 g/dL (3.5-5.2); Alkaline Phosphatase 122 U/L (35-105); Anion Gap 13.8 (5-19); Aspartate Amino Transferase 18 U/L (0-32); Blood Urea Nitrogen 18 mg/dL (8-23); Calcium 8.8 mg/dL (8.5-10.5); Carbon Dioxide 27 mmol/L (22-29); Chloride 105 mmol/L (98-107); Creatinine Clr Calc Pharmacy 62.5007; Globulin 2.9 g/dL (1.3-4.6); Glucose 84 mg/dL (65-115); Magnesium 2.2 mg/dL (1.7-2.3); NT Pro B Type Natriuretic Pept 152 pg/mL (0-125); Osmolality Calculated 295 mOsm/kg (285-295); Phosphorus 3.9 mg/dL (2.5-4.5); Potassium 3.8 mmol/L (3.5-5.1); Sodium 142 mmol/L (136-145); Total Protein 6.7 g/dL (6.6-8.7)
[2022-05-20] MEDS: aspirin 81 mg EC Tablet PO (10:10)
[2022-05-20] MEDS: pantoprazole DR 40 mg Tablet PO (10:10)
[2022-05-20] MEDS: metoprolol succinate ER (24 HR) 25 mg Tablet 12.5 MG PO (10:11)
[2022-05-20] MEDS: fluoxetine 20 mg Capsule PO (10:11)
[2022-05-20] MEDS: clopidogrel 75 mg Tablet PO (10:11)
[2022-05-20] MEDS: multivitamin therapeutic Tablet 1 TAB PO (10:11)
[2022-05-20] MEDS: amlodipine 5 mg Tablet PO (10:11)
--- NOTE | 2022-05-20 13:16 | PM.PN ---
Subjective Subjective: Earlier she was doing better, pain-free, but during my visit again having mild discomfort left side lower chest, some radiation to left side neck. No trouble breathing. Had no trouble getting up to the restroom. Vitals/I&O/Wt Last Vital Signs Temp 97.9 F 05/20/22 08:00 Pulse 67 05/20/22 08:00 Resp 16 05/20/22 08:00 BP 132/77 05/20/22 08:00 Pulse Ox 98 05/20/22 08:00 O2 Del Method 05/20/22 08:00 05/19/22 05/20/22 05/20/22 22:59 06:59 14:59 Intake Total 0 / 0 240 / 240 Balance 0 / 0 240 / 240 Weight last 48 hrs Weight 77.111 kg Physical Exam Narrative: at bedside. Const: COMMON NORMALS: patient oriented x3 and alert GENERAL APPEARANCE: cooperative ORIENTATION/CONSCIOUSNESS: Yes awake HENMT: COMMON NORMALS: oropharynx normal Neck/C-Spine: COMMON NORMALS: no JVD Chest: OTHER: Minimal tenderness to palpation left side lower chest wall. Resp: COMMON NORMALS: normal respiratory effort and clear to auscultation bilaterally AUSCULTATION: clear to auscultation bilaterally Cardio: COMMON NORMALS: no JVD, regular rhythm, S1 normal heart sound present, S2 normal heart sound present and No murmurs present (Cardio) RHYTHM: regular rhythm HEART SOUNDS: S1 normal heart sound present and S2 normal heart sound present GI: COMMON NORMALS: Normal to inspection, nondistended, normoactive bowel sounds present, Soft to palpation and non-tender PALPATION: Yes Soft to palpation Extremity: COMMON NORMALS: no joint enlargement and no pedal edema Neuro: COMMON NORMALS: patient oriented x3 and moves all extremities SENSORIUM/ORIENTATION: Yes alert Skin: COMMON NORMALS: no rashes or lesions noted GENERAL SKIN EXAM: no rashes or lesions noted Data : 05/20/22 05:12 05/20/22 05:12 A&P Assessment and plan (1) Chest pain: Troponin without elevation. No sign of STEMI. Does have some recurrence of symptoms. Has just had coronary angiogram with stenting of 60 to 70% stenosis of proximal LAD. Has not missed any medications. No signs of in-stent thrombosis. Will additionally monitor on telemetry. Discussed with her additional assessment by stress testing. Requested. Nitroglycerin as needed. Status: Acute (2) Atherosclerosis of coronary artery: Status: Acute (3) HTN (hypertension): Status: Acute (4) Anxiety: Status: Acute Plan Chest pain Cardiac echo February 2022 1. Normal left ventricular size, systolic function and wall ?thickness, with no regional wall motion abnormalities. Left ?ventricular ejection fraction is estimated at 70 %. Normal ?diastolic function. ?2. Normal right ventricular size and systolic function. ?3. Mild to moderate tricuspid valve regurgitation. ?4. Trace to mild aortic valve regurgitation. ?5.? Mild mitral valve regurgitation. ?6.? Mild pulmonary hypertension with pulm artery pressure ?estimated 41 mmHg. ?7. No prior similar studies to compare. Cardiac cath February 2022 * Angiography shows a right coronary dominant system. ? * Normal-sized left anterior descending artery.? Short eccentric hazy appearing 60 to 70% stenosis (AVELINO 3 flow). ? * Short left main with no stenosis. ? * Normal caliber circumflex artery with one major obtuse marginal without any stenosis. ? * Normal sized right coronary artery with minor luminal irregularities. hazy proximal LAD stenosis s/p successful revascularization with SPENCER x1. ? 4. Proximal Left Anterior Descending was treated with a Balloon, and Drug Eluting Stent. CTA chest 1. Negative for pulmonary embolus. 2. Cardiomegaly. 3. Coronary artery atherosclerotic calcifications. 4. Scattered prominent mediastinal lymph nodes measuring up to 7.2 mm, nonspecific. 5. Moderate hiatal hernia. 6. Emphysematous changes suspected. 7. Bibasilar atelectasis. Attestations Medical Necessity Statement*: Continue observation for additional assessment of episodes of chest pain in a lady with known coronary disease, stenting. Coding Level of Care Code Acute Sales Intern for [facility] Fwd Diagnoses Chest pain R07.9 Atherosclerosis of coronary artery I25.10 HTN (hypertension) I10 Anxiety F41.9
[2022-05-21] VITALS (8 sets, daily range): BP systolic 101–147; BP diastolic 48–73; PULSE 52–72; RESP 16–18; TEMP 36.5–36.7; O2SAT 95–98
[2022-05-21] MEDS: enoxaparin 40 mg/0.4 mL Syringe SUBCUT (01:06)
[2022-05-21 05:36] LABS: Basophils # 0.1 10^3/uL (0.0-0.1); Basophils % 0.8 %; Eosinophils # 0.6 10^3/uL (0.0-0.8); Eosinophils % 9.2 %; Hematocrit 41.2 % (37.0-47.0); Hemoglobin 13.8 g/dL (11.5-15.3); Lymphocytes # 2.2 10^3/uL (0.8-4.8); Lymphocytes % 33.3 %; Mean Corpuscular HGB Conc 33.5 g/dL (30.0-36.0); Mean Corpuscular Hemoglobin 31.2 pg (28.0-34.0); Mean Corpuscular Volume 93.2 fl (81-99); Mean Platelet Volume 9.6 fL (7.4-10.4); Monocytes # 0.6 10^3/uL (0.2-0.9); Monocytes % 9.7 %; Neutrophils # 3.04 10^3/uL (1.8-7.7); Neutrophils % 46.7 %; Nucleated Red Blood Cells % 0 %; Platelet Count 259 10^3/cmm (130-400); Red Blood Count 4.42 10^6/uL (4.1-5.3); Red Cell Distribution Width 12.4 % (12.1-15.1); White Blood Count 6.5 10^3/uL (4.0-10.0)
[2022-05-21 05:57] LABS: Alanine Aminotransferase 16 U/L (0-33); Albumin Level 3.5 g/dL (3.5-5.2); Alkaline Phosphatase 108 U/L (35-105); Anion Gap 12.3 (5-19); Aspartate Amino Transferase 16 U/L (0-32); Blood Urea Nitrogen 16 mg/dL (8-23); Calcium 8.7 mg/dL (8.5-10.5); Carbon Dioxide 29 mmol/L (22-29); Chloride 106 mmol/L (98-107); Creatinine Clr Calc Pharmacy 62.5007; Globulin 2.7 g/dL (1.3-4.6); Glucose 100 mg/dL (65-115); NT Pro B Type Natriuretic Pept 175 pg/mL (0-125); Osmolality Calculated 297 mOsm/kg (285-295); Phosphorus 3.6 mg/dL (2.5-4.5); Potassium 4.3 mmol/L (3.5-5.1); Sodium 143 mmol/L (136-145); Total Bilirubin 0.9 mg/dL (0.15-1.2); Total Protein 6.2 g/dL (6.6-8.7)
--- NOTE | 2022-05-21 07:00 | ECG_ITS ---
[facility] Test Date: 2022-05-21 Pat Name: Slime Teague Department: Room: 275 Gender: Female Deputy Clerk: : 1950 Requested By: Casa Lucas Order Number: [id number] Jose Eduardo MD: Norberto Byrnes M.D. Interpretive Statements NAME OF STUDY: LEXISCAN SESTAMIBI STRESS TEST INDICATION: Chest Pain, PROCEDURE: At the baseline, the EKG revealed sinus bradycardia with a rate of [address]-T changes. The baseline heart was 53 bpm with a blood pressue of 146/88 mm of Hg Lexiscan was infused over a period of 20 seconds. A total of 0.4 milligrams of Lexiscan was infused. The stress phase was continued for a total of 5 minutes. Heart rate at the end of the stress phase was 80 bpm with a blood pressure 170/81 mm of Hg. The EKG at the peak infusion revealed no significant changes. Sestamibi was injected 20 seconds after the Lexiscan infusion. Heart rate at the end of the recovery phase was 73 bpm with a blood pressure of 147/73 mm of Hg. CONCLUSION: 1. No significant EKG changes with the LexiScan infusion 2. No LexiScan induced chest pain or cardiac arrhythmia 3. Normal blood pressure and heart rate response 4. Sestamibi/sestamibi perfusion scan pending; see separate report. Electronically Signed On 05-22-2022 17:49:29 CDT by Norberto Byrnes M.D. [id number]
[2022-05-21] MEDS: regadenoson 0.4 Mg/5 ml Syringe IVP (07:28)
[2022-05-21] MEDS: ondansetron 2 mg/ML SDV 2 mL 4 MG IVP (07:35)
[2022-05-21] MEDS: multivitamin therapeutic Tablet 1 TAB PO (09:52)
[2022-05-21] MEDS: clopidogrel 75 mg Tablet PO (09:52)
[2022-05-21] MEDS: fluoxetine 20 mg Capsule PO (09:52)
[2022-05-21] MEDS: pantoprazole DR 40 mg Tablet PO (09:53)
[2022-05-21] MEDS: aspirin 81 mg EC Tablet PO (09:53)
[2022-05-21] MEDS: metoprolol succinate ER (24 HR) 25 mg Tablet 12.5 MG PO (09:57)
--- NOTE | 2022-05-21 09:58 | PC.NURSE ---
spoke with provider at bedside about patients current vitals and medications due instructions to give metopolol and hold amlodipine at this time
--- NOTE | 2022-05-21 12:17 | PC.CHAP ---
Pastoral Care Encounter/Spiritual Assessment Type of Contact [] Declined portrait artist visit [] Patient/Family/Request visit [] Outpatient visit [] Follow-up visit [] Physician referral [] Code/Alert [x] Routine visit [] Staff referral [] Actively dying [] Patient sleeping [] Family support [] [] Out of room [] Palliative care [] [] Receiving care in room [] Pre-surgical visit [] Trauma [] Long length of stay [] ICU visit [] Other: Relational/Emotional Strength [x] Patient feels connected with others/family/visitors/staff [] Distress [] Loneliness/isolation [] Abandonment Spirituality of Patient [] Person of Geetha [] Attends Bahai of their Geetha [] Believes in Prayer [] Reads Bible or Hindu materials [] There are Spiritual issues to be addressed Chaser Helper Interventions x] Prayer [] Active listening [] Non-anxious presence [] Spiritual/emotional support [] Crisis/trauma care [] Spiritual counseling [] Bereavement support [] Provided bereavement packet [] Provided Bible/devotional materials [] Provided toy/stuffed animal, coloring book to patient or family member [] Provided Communion [] Anointing/[place] [] Salvation [x] Completed spiritual assessment [] Other: Impact on Illness or Injury [] Angry [] Fearful [] Anxious [] Often cries [] Exhaustion [] Unable to work [] Unable to attend bahai [] Unable to walk/stand [] Unable to read [] Unable to drive [] Unable to eat/drink [] Unable to sleep [] Unable to be with family [] Patient intubated [] Other: Summary Time spent with patient 10 min
--- NOTE | 2022-05-21 12:48 | NMCV_ITS ---
NM jossue perf SPECT r/s* [id number] Slime Teague Age: 71 Gender: F : 1950 Exam Date: 05/21/2022 12:48 Ordering Phys: Casa Lucas MD Technologist: IQRA Kaufman Exam Location: [facility] Indications: Chest pain, Nausea STRESS TEST Please see separate stress test report in [facility] for full findings IMAGE PROTOCOL Rest/Stress 1 Lexiscan Day Radiopharmaceutical Dose (mCi) Administration Site Administered by Rest: Tc-99m 10.7 IV IQRA Kaufman Sestamivivienne Stress:Tc-99m 32.0 IV IQRA Kaufman Sestamivivienne Rest: 21-May-2022 60 Discovery 630 Stress: 21-May-2022 30 Discovery 630 Images obtained in supine and prone position. 0.4mg Lexiscan. SPECT RESULTS Technical Quality: Good Raw Data Analysis: Breast attenuation Image Corrections: No attenuation or motion correction applied Summed Stress Score: 0 Summed Rest Score: 0 Summed Difference Score: 0 PERFUSION FINDINGS Uniform myocardial tracer uptake with no significant perfusion abnormalities FUNCTIONAL RESULTS (calculated via Gated SPECT) Stress Image LV EF (%): 92 Stress EDV (mL):64 TID: 0.79 Stress ESV (mL):5 FUNCTIONAL FINDINGS: Segmental wall motion analysis revealing no gross wall motion abnormalities IMPRESSIONS 1. Myocardial perfusion imaging revealing uniform myocardial tracer uptake. 2. Normal LV ejection fraction 92%. 3. Segmental wall motion analysis revealing no gross wall motion abnormalities 4. Normal LV volume Low probability for coronary ischemia, based on the above findings Dr Norberto Byrnes MD FACC (Electronically Signed) Final Date: 21 May 2022 15:23 S
--- NOTE | 2022-05-21 17:11 | PM.DCS ---
Discharge Providers Date of Admission: 05/19/22 19:51 Date of Discharge: May 21, 2022 Attending Provider at Admission: Mich Mast MD Attending Provider at Discharge: Casa Lucas Primary Care Provider: Samuel Ryan DO Diagnoses at Discharge Discharge Diagnosis (1) Chest pain: Status: Acute (2) Atherosclerosis of coronary artery: Status: Acute (3) HTN (hypertension): Status: Acute (4) Anxiety: Status: Acute Reason for Visit Reason for Visit: chest pains Hospital Course Hospital Course Pleasant 71-year-old lady with history of CAD, stenting of proximal LAD this February was hospitalized for additional assessment and work-up after presenting with left-sided chest pain radiating to left side arm and neck. Troponin series were normal, EKG with nonspecific changes, without suggestion of STEMI. She denied missing any of her medications. There were no signs of in-stent thrombosis. She was monitored on telemetry. Her pain did appear to respond to nitroglycerin. She underwent additional testing with stress testing which was unremarkable. Discussed with her use of nitroglycerin as needed, but still she is aware to seek medical attention in case return of pain which is not resolving. CT angiogram of the chest was additionally obtained when she had presented which showed no PE, incidentally found moderate hiatal hernia, as well as nonspecific mediastinal lymphadenopathy with lymph node measuring as large as 7.2 cm. Please follow-up with her with regards to these findings. Physical Exam Narrative: at bedside. Const: COMMON NORMALS: patient oriented x3 and alert GENERAL APPEARANCE: cooperative ORIENTATION/CONSCIOUSNESS: Yes awake HENMT: COMMON NORMALS: oropharynx normal Neck/C-Spine: COMMON NORMALS: no JVD Resp: COMMON NORMALS: normal respiratory effort and clear to auscultation bilaterally AUSCULTATION: clear to auscultation bilaterally Cardio: COMMON NORMALS: no JVD, regular rhythm, S1 normal heart sound present, S2 normal heart sound present and No murmurs present (Cardio) RHYTHM: regular rhythm HEART SOUNDS: S1 normal heart sound present and S2 normal heart sound present GI: COMMON NORMALS: Normal to inspection, nondistended, normoactive bowel sounds present, Soft to palpation and non-tender PALPATION: Yes Soft to palpation Extremity: COMMON NORMALS: no joint enlargement and no pedal edema Neuro: COMMON NORMALS: patient oriented x3 and moves all extremities SENSORIUM/ORIENTATION: Yes alert Skin: COMMON NORMALS: no rashes or lesions noted GENERAL SKIN EXAM: no rashes or lesions noted Discharge Data Studies Completed and Pending Completed Studies During Hospitalization Category Date Time Status CTA chest [CT angio chest PE protcl [id number]] Stat Cat Scan 05/19/22 18:59 Completed Cardiac Stress Test MIBI [Sestamibi Stress Test Request Exams 05/21/22 07:00 Draft ] Routine XR chest 1V portable [id number] Stat Exams 05/19/22 17:37 Completed NM jossue perf SPECT r/s* [id number] Routine Nuc Med 05/21/22 12:48 Completed Pending at discharge Category Date Time Status Complete Blood Count w/Auto AM LABS Lab 05/22/22 04:00 Ordered Comprehensive Metabolic Panel AM LABS Lab 05/22/22 04:00 Ordered Magnesium AM LABS Lab 05/22/22 04:00 Ordered NT Pro B Type Natriuretic Pept QAM Lab 05/22/22 06:00 Ordered Phosphorus AM LABS Lab 05/22/22 04:00 Ordered Radiology Impressions Chest X-Ray 05/19/22 17:37 IMPRESSION: No acute findings. Chest CTA 05/19/22 18:59 IMPRESSION: 1. Negative for pulmonary embolus. 2. Cardiomegaly. 3. Coronary artery atherosclerotic calcifications. 4. Scattered prominent mediastinal lymph nodes measuring up to 7.2 mm, nonspecific. 5. Moderate hiatal hernia. 6. Emphysematous changes suspected. 7. Bibasilar atelectasis. Laboratory Results WBC 6.5 10^3/uL (4.0-10.0) 05/21/22 05:24 RBC 4.42 10^6/uL (4.1-5.3) 05/21/22 05:24 Hgb 13.8 g/dL (11.5-15.3) 05/21/22 05:24 Hct 41.2 % (37.0-47.0) 05/21/22 05:24 MCV 93.2 fl (81-99) 05/21/22 05:24 MCH 31.2 pg (28.0-34.0) 05/21/22 05:24 MCHC 33.5 g/dL (30.0-36.0) 05/21/22 05:24 RDW 12.4 % (12.1-15.1) 05/21/22 05:24 Plt Count 259 10^3/cmm (130-400) 05/21/22 05:24 MPV 9.6 fL (7.4-10.4) 05/21/22 05:24 Neut % (Auto) 46.7 % 05/21/22 05:24 Lymph % (Auto) 33.3 % 05/21/22 05:24 [place] % (Auto) 9.7 % 05/21/22 05:24 Eos % (Auto) 9.2 % 05/21/22 05:24 Baso % (Auto) 0.8 % 05/21/22 05:24 Neut # (Auto) 3.04 10^3/uL (1.8-7.7) 05/21/22 05:24 Lymph # (Auto) 2.2 10^3/uL (0.8-4.8) 05/21/22 05:24 [place] # (Auto) 0.6 10^3/uL (0.2-0.9) 05/21/22 05:24 Eos # (Auto) 0.6 10^3/uL (0.0-0.8) 05/21/22 05:24 Baso # (Auto) 0.1 10^3/uL (0.0-0.1) 05/21/22 05:24 Nucleated RBC % (auto) 0 % 05/21/22 05:24 Nucleated RBCs # 0.0 /100WBC 05/21/22 05:24 D-Dimer 1.15 ug/mIFEU (0-0.59) H 05/19/22 17:44 Sodium 143 mmol/L (136-145) 05/21/22 05:24 Potassium 4.3 mmol/L (3.5-5.1) 05/21/22 05:24 Chloride 106 mmol/L (98-107) 05/21/22 05:24 Carbon Dioxide 29 mmol/L (22-29) 05/21/22 05:24 Anion Gap 12.3 (5-19) 05/21/22 05:24 BUN 16 mg/dL (8-23) 05/21/22 05:24 Creatinine 0.8 mg/dL (0.5-0.9) 05/21/22 05:24 GFR Calculation Not Reportable 05/21/22 05:24 Glucose 100 mg/dL (65-115) 05/21/22 05:24 Calculated Osmolality 297 mOsm/kg (285-295) H 05/21/22 05:24 Calcium 8.7 mg/dL (8.5-10.5) 05/21/22 05:24 Phosphorus 3.6 mg/dL (2.5-4.5) 05/21/22 05:24 Magnesium 2.0 mg/dL (1.7-2.3) 05/21/22 05:24 Total Bilirubin 0.9 mg/dL (0.15-1.2) 05/21/22 05:24 AST 16 U/L (0-32) 05/21/22 05:24 ALT 16 U/L (0-33) 05/21/22 05:24 Alkaline Phosphatase 108 U/L (35-105) H 05/21/22 05:24 Troponin T Baseline 6 ng/L (0-10) 05/19/22 17:44 Troponin T 120 Minute 6.88 ng/L (0-10) 05/19/22 19:26 Delta Troponin T 0.88 ABS# (0-10) 05/19/22 19:26 Troponin T Hi Sens 6Hr 6.87 ng/L (0-10) 05/19/22 23:17 Troponin T Hi Sens 6Hr Delta 0.87 ng/L (0-12) 05/19/22 23:17 NT-Pro-B Natriuret Pep 175 pg/mL (0-125) H 05/21/22 05:24 Total Protein 6.2 g/dL (6.6-8.7) L 05/21/22 05:24 Albumin 3.5 g/dL (3.5-5.2) 05/21/22 05:24 Globulin 2.7 g/dL (1.3-4.6) 05/21/22 05:24 Lipase 39 U/L (13-60) 05/19/22 17:44 SARS-CoV-2 Ag (Rapid) Negative (Negative) 05/19/22 17:49 Vitals Last Vital Signs Temp 98.1 F 05/21/22 15:45 Pulse 60 05/21/22 15:45 Resp 18 05/21/22 15:45 BP 130/53 05/21/22 15:45 Pulse Ox 98 05/21/22 15:45 O2 Del Method 05/21/22 15:45 Discharge Plan Discharge Patient Disposition: Home Condition: Stable Prescriptions: Continued aspirin 81 mg tablet,delayed release (DR/EC) 81 mg PO DAILY Qty: 30 6RF fluoxetine 20 mg capsule 20 mg PO DAILY hydrocortisone [Cortisone (hydrocortisone)] 1 % Cream 1 applic TOPICAL BID PRN (Reason: Itching) atorvastatin 40 mg Tablet 40 mg PO BEDTIME Qty: 30 3RF clopidogrel 75 mg Tablet 75 mg PO DAILY Qty: 30 3RF amlodipine 5 mg Tablet 5 mg PO DAILY Qty: 30 3RF pantoprazole 40 mg Tablet,Delayed Release (Dr/Ec) 40 mg PO DAILY Qty: 30 3RF nitroglycerin 0.4 mg Tablet, Sublingual 0.4 mg sublingual Q5M PRN (Reason: Chest Pain) Qty: 30 3RF metoprolol succinate 25 mg tablet extended release 24 hr 12.5 mg PO DAILY Qty: 15 3RF multivitamin Tablet 1 tab PO DAILY melatonin 3 mg Tablet 3 mg PO BEDTIME cranberry 400 mg Capsule 400 mg PO DAILY Rx Instructions: administer with a meal Discharge Orders: Discharge Order (Routine); Ordered 05/21/22 Ordered By: Casa Lucas Referrals: Aissatou Mcqueen FNP [Nurse Practitioner] - 05/30/22 10:30 am Samuel Ryan DO [Primary Care Provider] - 1 week (Please call tomorrow morning to schedule a hospital follow up appointment with primary care provider. ) Discharge Diet: Cardiac Discharge Activity: Increase activity as tolerated Patient Instructions: Chest Pain (GEN), Hiatal Hernia (GEN), Prevent Cardiovascular Disease (GEN) Activity Restrictions/Additional Instructions: Take [facility] as discussed as needed in case of recurrence of left-sided chest pain. If pain not resolving after 3 nitroglycerin taken 5 minutes apart, call 911. Please follow-up with your account group supervisor. Please discuss with your primary doctor regarding incidentally noted moderate hiatal hernia on chest CAT scan. Please also discuss with your primary doctor regarding incidentally seen scattered prominent mediastinal lymph nodes measuring up to 7.2 mm. These are nonspecific but would benefit from further follow-up. Continue to optimize risk factors of cardiovascular disease. Discharge Attestations Time Spent in Discharge Care*: greater than 30 min Quality Metrics Clinical Quality Measures [ No reported AMI, CVA or VTE this stay] Coding Level of Care Code Acute Chg FW DC note Diagnoses Chest pain R07.9 Atherosclerosis of coronary artery I25.10 HTN (hypertension) I10 Anxiety F41.9
--- NOTE | 2022-05-21 17:29 | PC.NURSE ---
Discharge Note Patient discharged to home via private vehicle accompanied by family. Discharge instructions reviewed with patient and/or underwriting service representative. Mobile pharmacy medications and/or prescriptions provided. Belongings/home medications returned.
== END 2022-05-21 17:30 | disposition home or self-care (01) ==
LOC: ER 22:12 → MEDSURG 22:33
PROVIDERS: Admitting Provider Family Medicine; Emergency Provider Emergency Medicine; PCP Family Medicine; Visit Provider Internal Medicine
DX: R07.9 Chest pain, unspecified (principal); F41.9 Anxiety disorder, unspecified; I25.10 Atherosclerotic heart disease of native coronary artery without angina pectoris; I10 Essential (primary) hypertension; Z79.82 Long term (current) use of aspirin; Z95.5 Presence of coronary angioplasty implant and graft
CPT/HCPCS: 36415; 71045; 71275; 78452; 80053; 83690; 83735; 83880; 84100; 84484; 85025; 85378; 87426; 93005; 93017; 94664; 96372; 99285; A9500; G0378; J1650; J2405; J2785; Q9967

== ENCOUNTER → 2022-05-30 10:08 | Outpatient (BNVA) | payer MEDICARE, OTHER, SELFPAY | PROVIDERS: PCP Family Medicine; Visit Provider Nurse Practitioner Family | DX: R07.9 Chest pain, unspecified (principal) | CPT/HCPCS: 99213 ==

== ENCOUNTER → 2022-11-12 08:08 | Outpatient (BNVA) | payer MEDICARE, OTHER, SELFPAY | PROVIDERS: PCP Family Medicine; Visit Provider Nurse Practitioner Family | DX: I25.10 Atherosclerotic heart disease of native coronary artery without angina pectoris (principal); I10 Essential (primary) hypertension | CPT/HCPCS: 99214 ==

== ENCOUNTER → 2022-11-28 12:00 | Outpatient (BNVA) | payer MEDICARE, SELFPAY | PROVIDERS: PCP Family Medicine; Visit Provider Family Medicine | DX: I10 Essential (primary) hypertension (principal); R73.09 Other abnormal glucose; I25.10 Atherosclerotic heart disease of native coronary artery without angina pectoris; F41.9 Anxiety disorder, unspecified; R13.10 Dysphagia, unspecified | CPT/HCPCS: 80053; 80061; 83036 ==

== ENCOUNTER → 2022-12-25 14:49 | Outpatient (BNVA) | payer MEDICARE, OTHER, SELFPAY | PROVIDERS: PCP Family Medicine; Visit Provider Surgery | DX: R13.10 Dysphagia, unspecified (principal); Z80.0 Family history of malignant neoplasm of digestive organs; Z12.11 Encounter for screening for malignant neoplasm of colon | CPT/HCPCS: 99203 ==

== ENCOUNTER 2023-01-22 05:53 | Day surgery (SDC) | payer MEDICARE, OTHER, SELFPAY ==
[2023-01-20 10:15] VITALS: BMI 30.1
[2023-01-22 06:15] VITALS: BP 144/96; PULSE 79; RESP 18; TEMP 36.1; O2SAT 96
[2023-01-22] MEDS: sodium chloride 0.9% 1,000 ML 30 ML IV (06:21)
--- NOTE | 2023-01-22 06:37 | W.PM.OPSUD ---
Surgery/Procedure H&P Update DATE OF PROCEDURE: January 22, 2023 DATE H&P PERFORMED: 12/25/22 H&P UPDATE INFORMATION: I have reviewed H&P completed within last 30 days, I have examined patient prior to procedure and No changes to prior documentation PREOP DIAGNOSIS: Dysphagia PLANNED PROCEDURE: Operation Date: 01/22/23 07:00 Proposed Procedures p 86343 EGD w ball dial, 21785 colon Z12.11,K21.9 GERD, Z80.0(Not Applicable) - DO marlen Joe Colonoscopy(Not Applicable) - Merritt Robles DO
--- NOTE | 2023-01-22 06:45 | ANES.PREANE2 ---
Pre-Anesthetic Assessment Height/Weight: Height 1.6 m Weight 77.111 kg Temp Pulse Resp BP Pulse Ox O2 Del Method 97 F L 79 18 144/96 96 Room Air 01/22/23 06:15 01/22/23 06:15 01/22/23 06:15 01/22/23 06:15 01/22/23 06:15 01/22/23 06:15 Preop Diagnosis: Dysphagia Operation Date: 01/22/23 07:00 [place] Procedures p [address]35 EGD w ball dial, [address] colon Z12.11,K21.9 GERD, Z80.0(Not Applicable) - DO marlen Joe Colonoscopy(Not Applicable) - Merritt Robles DO Familial anesthetic complications: none Was Beta Julia taken within 24 hours: N/A Was Clonidine taken within 24 hours: N/A Last intake: Intake Last Liquid Date 01/21/23 Last Liquid Time 22:00 Last Solid Date 01/20/23 Last Solid Time 22:00 Social No alcohol and No tobacco Exam alert and oriented x 3 Airway Submandibular: within normal limits Cervical ROM: within normal limits Mallampati: Class II Dentition: full Pulmonary None reported CV/HEM Coronary Artery Disease, Hypertension and Myocardial Infarction (february 2022, stent x1) None reported Hepatic None reported GI Gastroesophageal Reflux Disease Metabolic Hyperlipidemia Neuropsych None reported Anesthetic Plan ASA status: 3 Anesthesia: Anesthesia Evaluation and MAC Risk of > 500 ml blood loss (7ml/kg in children): No Medications/Allergies Home Medications Medication Instructions Recorded Confirmed Last Taken Type hydrocortisone 1 % topical cream 1 applic topical BID PRN Itching 03/15/22 01/20/23 03/13/22 21:00 History (Cortisone (hydrocortisone)) nitroglycerin 0.4 mg sublingual 0.4 mg sublingual Q5M PRN Chest 03/17/22 01/20/23 01/19/23 Rx tablet Pain #30 tabs aspirin 81 mg tablet,delayed 81 mg PO DAILY #30 tabs 05/14/22 01/20/23 01/18/23 Rx release cranberry 400 mg capsule 400 mg PO DAILY 05/19/22 01/20/23 01/20/23 History multivitamin 1 tab PO DAILY 05/19/22 01/20/23 01/20/23 History amlodipine 5 mg tablet 5 mg PO DAILY #90 tabs 0901/20/23 01/21/23 Rx clopidogrel 75 mg tablet 75 mg PO DAILY #90 tabs 06/10/22 01/20/23 01/17/23 Rx metoprolol succinate 25 mg 12.5 mg PO DAILY #45 tabs 06/10/22 01/20/23 01/21/23 08:00 Rx tablet,extended release 24 hr pantoprazole 40 mg tablet,delayed 40 mg PO BID 6 weeks #84 tabs 12/25/22 01/20/23 01/20/23 Rx release (Protonix) atorvastatin 40 mg tablet 20 mg PO BEDTIME 01/20/23 01/20/23 01/20/23 History fluoxetine 20 mg capsule 20 mg PO DAILY 01/20/23 01/20/23 01/21/23 History Allergies Allergy/AdvReac Type Severity Reaction Status Date / Time No Known Allergies Allergy Verified 01/20/23 10:07 Current Medications Generic Name Dose Route Start Last Admin Trade Name Freq PRN Reason Stop Dose Admin Sodium Chloride 1,000 mls @ 30 mls/hr 01/22/23 06:00 01/22/23 06:21 Sodium Chloride 0.9% IV 01/23/23 05:59 30 mls/hr .Q24H KOLE Administration PFSH Anesthesia Medical History Ankle sprain Atherosclerosis of coronary artery Family history of colon cancer HTN (hypertension) Social History Smoking and tobacco status: never smoked Alcohol intake: never Substance/Drug Use: never Data Anesthesia Cardiac Studies: Echocardiogram 03/14/22 Sestamibi Stress Test (Cardiology) 05/21/22
[2023-01-22 07:35] VITALS: BP 138/93; PULSE 78; RESP 16; TEMP 36.2; O2SAT 94
[2023-01-22 07:45] VITALS: BP 134/82; PULSE 79; RESP 16; O2SAT 93
--- NOTE | 2023-01-22 07:48 | ANE.PACU2 ---
Inpatient post-anesthesia follow up: Airway intact: Yes Vital signs: Temperature 97.1 F Pulse Rate 78 Respiratory Rate 16 Blood Pressure 138/93 Pulse Oximetry 94 Oxygen Delivery Me thod Nasal Cannula Oxygen Flow Rate 4 Fraction of Inspir ed Oxygen Hydration adequate: Yes Nausea and vomiting: No Pain level: 1 Mental status: Baseline
== END 2023-01-22 08:10 | disposition home or self-care (01) ==
PROVIDERS: PCP Family Medicine; Visit Provider Surgery
PROC: 0DJD8ZZ Inspection of Lower Intestinal Tract, Via Natural or Artificial Opening Endoscopic (ICD-10-PCS; CPT 45378; 2023-01-22 07:00)
DX: Z12.11 Encounter for screening for malignant neoplasm of colon (principal); Z80.0 Family history of malignant neoplasm of digestive organs; K21.9 Gastro-esophageal reflux disease without esophagitis; K44.9 Diaphragmatic hernia without obstruction or gangrene; R13.10 Dysphagia, unspecified; I25.10 Atherosclerotic heart disease of native coronary artery without angina pectoris; I10 Essential (primary) hypertension; I25.2 Old myocardial infarction; Z95.5 Presence of coronary angioplasty implant and graft; E78.5 Hyperlipidemia, unspecified; Z79.82 Long term (current) use of aspirin; Z79.02 Long term (current) use of antithrombotics/antiplatelets; K22.2 Esophageal obstruction
CPT/HCPCS: 43239; 43249; 88305; G0121; J2704; J7030

== ENCOUNTER → 2023-02-04 11:53 | Outpatient (BNVA) | payer MEDICARE, OTHER, SELFPAY | PROVIDERS: PCP Family Medicine; Visit Provider Family Medicine | DX: M79.10 Myalgia, unspecified site (principal); M25.50 Pain in unspecified joint | CPT/HCPCS: 80053; 85651; 86140; 86160; 86162; 86235; 86255; 86376 ==

== ENCOUNTER → 2023-02-12 16:16 | Outpatient (BNVA) | payer MEDICARE, OTHER, SELFPAY | PROVIDERS: PCP Family Medicine; Visit Provider Surgery | DX: R13.10 Dysphagia, unspecified (principal); Z80.0 Family history of malignant neoplasm of digestive organs; K21.9 Gastro-esophageal reflux disease without esophagitis | CPT/HCPCS: 99213 ==

== ENCOUNTER 2023-04-26 09:49 | Inpatient (IN) | payer MEDICARE, OTHER, SELFPAY ==
[2023-04-26] VITALS (9 sets, daily range): BP systolic 120–164; BP diastolic 68–80; PULSE 59–84; RESP 15–18; TEMP 36.4–36.7; O2SAT 92–98; BMI 30.1
--- NOTE | 2023-04-26 10:10 | W.ED.EXTPRO ---
Documented by User: CARLA Escalona 04/28/23 09:45 HPI - Extremity Problem General: Chief complaint: Extremity Problem,Nontraumatic Stated complaint: swollen hand, painful up to arm Time Seen by Provider: 04/26/23 09:52 Source: patient Mode of arrival: ambulatory Limitations: no limitations History of Present Illness: Patient is a very nice 72-year-old female presents to ED today with complaint of diffuse swelling to her right wrist and hand that she began noticing a few days ago. She states a few days ago while playing piano at [employer] she began feeling like her thumb was sore and swollen. Since then she has noticed progressive swelling and worsening pain affecting the volar aspect of her wrist and her entire hand. Patient states she has had a referral to rheumatology placed by her primary care provider as there was some concern for rheumatoid arthritis-she is waiting on this appointment. She denies any cuts, scrapes, puncture wounds recently. She states the hand is not erythematous. She has not been running fevers. Complaint: extremity pain, joint swelling and joint pain Onset (ago): day(s) Pain Consistency: constant Location: right and upper extremity Quality: constant Radiation: none Relieving factors: immobilization Exacerbating factors: range of motion Associated symptoms: Reports no associated symptoms; Deny fever(s) Review of Systems Const: Denies: fever(s), chills, body aches, fatigue or malaise Musc: Reports: extremity pain (R hand/wrist), extremity swelling (R hand/wrist), joint pain and joint swelling Neuro: Denies: numbness in extremities, weakness in extremities or sensory changes PFS ED PFSH: Medical History Ankle sprain Atherosclerosis of coronary artery Family history of colon cancer HTN (hypertension) Social History Smoking and tobacco status: never smoked Alcohol intake: never Substance/Drug Use: never Lives independently: Yes Household members: spouse Marital status: Physical Exam Const: COMMON NORMALS: no acute distress, average body habitus, patient oriented x3, no limitations, healthy appearing, alert and well nourished Resp: COMMON NORMALS: normal respiratory effort and clear to auscultation bilaterally AUSCULTATION: clear to auscultation bilaterally Cardio: COMMON NORMALS: regular rate and regular rhythm RATE: regular rate RHYTHM: regular rhythm Extremity: COMMON NORMALS: capillary refill normal GENERAL: Yes normal exam except as noted RIGHT UPPER EXTREMITY: Yes wrist and Yes hand & digits OTHER: Patient has diffuse swelling and tenderness affecting the volar aspect of her right wrist as well as her entire hand. All of her digits are held in slight flexion patient reports quite a bit of tenderness with passive extension. Hand is warm but I do not appreciate any obvious or diffuse erythema. She has one minor scabbed skin lesion on one of the fingers that does not appear acutely infected. Patient appears to have normal micro-movements of the wrist that does not produce much discomfort Neuro: COMMON NORMALS: patient oriented x3, moves all extremities, no focal motor deficits and no sensory deficits noted SENSORIUM/ORIENTATION: Yes alert Course ED course: Care transferred to Dr. Cobb pending labs/imaging at this time. ES Vital Signs: Vital signs: Vital Signs Temperature 98.0 F 04/28/23 07:22 Pulse Rate 53 L 04/28/23 07:22 Respiratory Rate 16 04/28/23 07:22 Blood Pressure 126/7 04/28/23 07:22 Pulse Oximetry 95 04/28/23 07:22 Oxygen Delivery Me thod Room Air 04/28/23 03:53 MDM - Extremity (Nontraumatic) Medical Decision Making Care transferred to Dr. Cobb. Please see his note for further care/disposition. ES Lab Data 04/28/23 04:07 04/28/23 04:07 Radiology Impressions Hand X-Ray 04/26/23 10:31 IMPRESSION: No acute findings. Hand MRI 04/28/23 07:19 IMPRESSION: 1. No abscess or osteomyelitis. 2. Very mild soft tissue edema along the dorsal surfaces of the hand. Laboratory Results WBC 13.0 10^3/uL (4.0-10.0) H 04/26/23 10:06 RBC 4.86 10^6/uL (4.1-5.3) 04/26/23 10:06 Hgb 15.2 g/dL (11.5-15.3) 04/26/23 10:06 Hct 45.8 % (37.0-47.0) 04/26/23 10:06 MCV 94.2 fl (81-99) 04/26/23 10:06 MCH 31.3 pg (28.0-34.0) 04/26/23 10:06 MCHC 33.2 g/dL (30.0-36.0) 04/26/23 10:06 RDW 13.4 % (12.1-15.1) 04/26/23 10:06 Plt Count 333 10^3/cmm (130-400) 04/26/23 10:06 MPV 9.4 fL (7.4-10.4) 04/26/23 10:06 Neut % (Auto) 65.1 % 04/26/23 10:06 Lymph % (Auto) 23.7 % 04/26/23 10:06 [place] % (Auto) 8.2 % 04/26/23 10:06 Eos % (Auto) 2.0 % 04/26/23 10:06 Baso % (Auto) 0.5 % 04/26/23 10:06 Neut # (Auto) 8.45 10^3/uL (1.8-7.7) H 04/26/23 10:06 Lymph # (Auto) 3.1 10^3/uL (0.8-4.8) 04/26/23 10:06 [place] # (Auto) 1.1 10^3/uL (0.2-0.9) H 04/26/23 10:06 Eos # (Auto) 0.3 10^3/uL (0.0-0.8) 04/26/23 10:06 Baso # (Auto) 0.1 10^3/uL (0.0-0.1) 04/26/23 10:06 Nucleated RBC % (auto) 0 % 04/26/23 10:06 Nucleated RBCs # 0.0 /100WBC 04/26/23 10:06 ESR 25 mm/hr (0-15) H 04/26/23 10:06 Sodium 139 mmol/L (136-145) 04/26/23 10:06 Potassium 4.1 mmol/L (3.5-5.1) 04/26/23 10:06 Chloride 103 mmol/L (98-107) 04/26/23 10:06 Carbon Dioxide 26 mmol/L (22-29) 04/26/23 10:06 Anion Gap 14.1 (5-19) 04/26/23 10:06 BUN 15 mg/dL (8-23) 04/26/23 10:06 Creatinine 0.9 mg/dL (0.5-0.9) 04/26/23 10:06 GFR Calculation Not Reportable 04/26/23 10:06 Glucose 145 mg/dL (65-115) H 04/26/23 10:06 Calculated Osmolality 291 mOsm/kg (285-295) 04/26/23 10:06 Calcium 8.7 mg/dL (8.5-10.5) 04/26/23 10:06 Total Bilirubin 1.0 mg/dL (0.15-1.2) 04/26/23 10:06 AST 24 U/L (0-32) 04/26/23 10:06 ALT 24 U/L (0-33) 04/26/23 10:06 Alkaline Phosphatase 124 U/L (35-105) H 04/26/23 10:06 C-Reactive Protein 67.4 mg/L (0.0-4.9) H 04/26/23 10:06 Total Protein 7.0 g/dL (6.6-8.7) 04/26/23 10:06 Albumin 4.1 g/dL (3.5-5.2) 04/26/23 10:06 Globulin 2.9 g/dL (1.3-4.6) 04/26/23 10:06 Discharge Plan Discharge Patient Disposition: Admitted As Inpatient Admit Provider: Casa Lucas Clinical Impression: Infection of hand, Tenosynovitis Condition: Stable Discharge Diet: Usual diet Discharge Activity: Resume usual activity Coding Level of Care Code ED Technical Staff Engineer for Chg Fwd Documented by User: Prabhu Cobb MD 05/04/23 22:08 HPI - Extremity Problem General: Chief complaint: Extremity Problem,Nontraumatic Stated complaint: swollen hand, painful up to arm Time Seen by Provider: 04/26/23 09:52 [facility] ED PFSH: Medical History Ankle sprain Atherosclerosis of coronary artery Family history of colon cancer HTN (hypertension) Social History Smoking and tobacco status: never smoked Alcohol intake: never Substance/Drug Use: never Lives independently: Yes Household members: spouse Marital status: Course Vital Signs: Vital signs: Vital Signs Temperature 98.0 F 04/28/23 07:22 Pulse Rate 53 L 04/28/23 07:22 Respiratory Rate 16 04/28/23 07:22 Blood Pressure 126/7 04/28/23 07:22 Pulse Oximetry 95 04/28/23 07:22 Oxygen Delivery Me thod Room Air 04/28/23 03:53 MDM - Extremity (Nontraumatic) Medical Decision Making Care transferred to Dr. Cobb. Please see his note for further care/disposition. ES Patient care handoff received from CARLA Escalona continuation of ED evaluation. I personally saw and evaluated patient. I reperformed skaggs portions of E/M. I reviewed documentation. Labs with imaging. Though involving more digits than typical there is some concern for positive kanavel signs. Plan to consult orthopedics and admit the patient for further management. The results of ED evaluation were discussed with the patient including plan for admission due to requirement for level of care not available if discharged to prevent significant worsening/deterioration. Patient agreeable with plan. Discussed with hospitalist service who was agreeable to admit patient. Prabhu Cobb MD Emergency Medicine Lab Data 04/28/23 04:07 04/28/23 04:07 Radiology Impressions Hand X-Ray 04/26/23 10:31 IMPRESSION: No acute findings. Hand MRI 04/28/23 07:19 IMPRESSION: 1. No abscess or osteomyelitis. 2. Very mild soft tissue edema along the dorsal surfaces of the hand. Laboratory Results WBC 13.0 10^3/uL (4.0-10.0) H 04/26/23 10:06 RBC 4.86 10^6/uL (4.1-5.3) 04/26/23 10:06 Hgb 15.2 g/dL (11.5-15.3) 04/26/23 10:06 Hct 45.8 % (37.0-47.0) 04/26/23 10:06 MCV 94.2 fl (81-99) 04/26/23 10:06 MCH 31.3 pg (28.0-34.0) 04/26/23 10:06 MCHC 33.2 g/dL (30.0-36.0) 04/26/23 10:06 RDW 13.4 % (12.1-15.1) 04/26/23 10:06 Plt Count 333 10^3/cmm (130-400) 04/26/23 10:06 MPV 9.4 fL (7.4-10.4) 04/26/23 10:06 Neut % (Auto) 65.1 % 04/26/23 10:06 Lymph % (Auto) 23.7 % 04/26/23 10:06 [place] % (Auto) 8.2 % 04/26/23 10:06 Eos % (Auto) 2.0 % 04/26/23 10:06 Baso % (Auto) 0.5 % 04/26/23 10:06 Neut # (Auto) 8.45 10^3/uL (1.8-7.7) H 04/26/23 10:06 Lymph # (Auto) 3.1 10^3/uL (0.8-4.8) 04/26/23 10:06 [place] # (Auto) 1.1 10^3/uL (0.2-0.9) H 04/26/23 10:06 Eos # (Auto) 0.3 10^3/uL (0.0-0.8) 04/26/23 10:06 Baso # (Auto) 0.1 10^3/uL (0.0-0.1) 04/26/23 10:06 Nucleated RBC % (auto) 0 % 04/26/23 10:06 Nucleated RBCs # 0.0 /100WBC 04/26/23 10:06 ESR 25 mm/hr (0-15) H 04/26/23 10:06 Sodium 139 mmol/L (136-145) 04/26/23 10:06 Potassium 4.1 mmol/L (3.5-5.1) 04/26/23 10:06 Chloride 103 mmol/L (98-107) 04/26/23 10:06 Carbon Dioxide 26 mmol/L (22-29) 04/26/23 10:06 Anion Gap 14.1 (5-19) 04/26/23 10:06 BUN 15 mg/dL (8-23) 04/26/23 10:06 Creatinine 0.9 mg/dL (0.5-0.9) 04/26/23 10:06 GFR Calculation Not Reportable 04/26/23 10:06 Glucose 145 mg/dL (65-115) H 04/26/23 10:06 Calculated Osmolality 291 mOsm/kg (285-295) 04/26/23 10:06 Calcium 8.7 mg/dL (8.5-10.5) 04/26/23 10:06 Total Bilirubin 1.0 mg/dL (0.15-1.2) 04/26/23 10:06 AST 24 U/L (0-32) 04/26/23 10:06 ALT 24 U/L (0-33) 04/26/23 10:06 Alkaline Phosphatase 124 U/L (35-105) H 04/26/23 10:06 C-Reactive Protein 67.4 mg/L (0.0-4.9) H 04/26/23 10:06 Total Protein 7.0 g/dL (6.6-8.7) 04/26/23 10:06 Albumin 4.1 g/dL (3.5-5.2) 04/26/23 10:06 Globulin 2.9 g/dL (1.3-4.6) 04/26/23 10:06 Discharge Plan Discharge Patient Disposition: Admitted As Inpatient Admit Provider: Casa Lucas Clinical Impression: Infection of hand, Tenosynovitis Condition: Stable Discharge Diet: Usual diet Discharge Activity: Resume usual activity Coding Level of Care Code ED Technical Staff Engineer for Cheryl Godwin
[2023-04-26 10:19] LABS: Basophils # 0.1 10^3/uL (0.0-0.1); Basophils % 0.5 %; Eosinophils # 0.3 10^3/uL (0.0-0.8); Hematocrit 45.8 % (37.0-47.0); Hemoglobin 15.2 g/dL (11.5-15.3); Lymphocytes # 3.1 10^3/uL (0.8-4.8); Lymphocytes % 23.7 %; Mean Corpuscular HGB Conc 33.2 g/dL (30.0-36.0); Mean Corpuscular Hemoglobin 31.3 pg (28.0-34.0); Mean Corpuscular Volume 94.2 fl (81-99); Mean Platelet Volume 9.4 fL (7.4-10.4); Monocytes # 1.1 10^3/uL (0.2-0.9); Monocytes % 8.2 %; Neutrophils # 8.45 10^3/uL (1.8-7.7); Neutrophils % 65.1 %; Nucleated Red Blood Cells % 0 %; Platelet Count 333 10^3/cmm (130-400); Red Blood Count 4.86 10^6/uL (4.1-5.3); Red Cell Distribution Width 13.4 % (12.1-15.1)
--- NOTE | 2023-04-26 10:31 | XRR_ITS ---
PROCEDURE INFORMATION: Exam: XR Right Hand Exam date and time: 04/26/2023 10:38 AM Age: 72 years old Clinical indication: Pain; Hand; Right; Additional info: Swelling, pain TECHNIQUE: Imaging protocol: Radiologic exam of the right hand. Views: 3 or more views. COMPARISON: No relevant prior studies available. FINDINGS: Bones/joints: No acute fracture or dislocation. Mild degenerative joint space narrowing, marginal osteophyte formation, and subchondral sclerosis at the 1st CMC joint. Soft tissues: Unremarkable. XR/XR hand RT min 3V* [id number] IMPRESSION: No acute findings.
[2023-04-26 10:33] LABS: Erythrocyte Sedimentation Rate 25 mm/hr (0-15)
[2023-04-26] MEDS: morphine 4 mg/mL SDV 1 mL IM (10:38)
[2023-04-26] MEDS: dexamethasone 10 mg/mL INJ 8 MG IM (10:38)
[2023-04-26] MEDS: ketorolac 30 mg/mL INJ 15 MG IVP ×3 (10:38→19:23)
[2023-04-26 10:42] LABS: Alanine Aminotransferase 24 U/L (0-33); Albumin Level 4.1 g/dL (3.5-5.2); Alkaline Phosphatase 124 U/L (35-105); Anion Gap 14.1 (5-19); Aspartate Amino Transferase 24 U/L (0-32); Blood Urea Nitrogen 15 mg/dL (8-23); C Reactive Protein 67.4 mg/L (0.0-4.9); Calcium 8.7 mg/dL (8.5-10.5); Carbon Dioxide 26 mmol/L (22-29); Chloride 103 mmol/L (98-107); Globulin 2.9 g/dL (1.3-4.6); Glucose 145 mg/dL (65-115); Osmolality Calculated 291 mOsm/kg (285-295); Potassium 4.1 mmol/L (3.5-5.1); Sodium 139 mmol/L (136-145)
--- NOTE | 2023-04-26 11:19 | PC.PHAR ---
Addendum entered by Dianna Blue 04/26/23 11:21: AND STATES SHE TAKES HER OTC MEDS Original Note: PT BROUGHT IN HER MED BOTTLES-PT STATES THE DCED HER LIPITOR 40MG DAILY EXT SHOWS LAST FILLED 03/03/23 90D/S PT DIDNT BRING IN THAT MED BOTTLE-PT STATES SHE TAKES PROTONIX 40MG QAM RX BOTTLE DATED 02/18/23 42D/S 40MG BID -NOTES ARE MADE IN THE PHARMACY COMMENTS PT STATES SHE ONLY TAKES 7 PILLS IN THE AM
[2023-04-26] MEDS: piperacillin-tazobactam 4.5 GM in sodium chloride 0.9% (plus) 50 ML IV (11:52)
--- NOTE | 2023-04-26 13:00 | PM.CONSULT ---
Providers/Reason For Consult Consulting Physician/Specialty*: Rakan Rowell DO/orthopedic surgery Reason for Consult*: Right hand swelling rule out flexor tenosynovitis Requesting Physician: Dr. Oh Attending Physician: Dr. Lucas Primary Care Provider: Samuel Ryan DO History of Present Illness History of Present Illness Patient is a very nice 72-year-old female presents to ED today with complaint of diffuse swelling to her right wrist and hand that she began noticing a few days ago.? She states a few days ago while playing piano at [employer] she began feeling like her thumb was sore and swollen.? Since then she has noticed progressive swelling and worsening pain affecting the volar aspect of her wrist and her entire hand.? Patient states she has had a referral to rheumatology placed by her primary care provider as there was some concern for rheumatoid arthritis-she is waiting on this appointment.? She denies any cuts, scrapes, puncture wounds recently.? She states the hand is not erythematous.? She has not been running fevers. According to patient has been working excessively outside in the garden and she had been stung by some yellow jackets recently. Denies any other pain or issues elsewhere denies any numbness or tingling. Review of Systems General: Reports: 10 or more systems reviewed and unremarkable except in HPI and below Medications/Allergies Home Medications Medication Instructions Recorded Confirmed Last Taken Type cranberry 400 mg capsule 400 mg PO QAM 05/19/22 04/26/23 01/20/23 History multivitamin 1 tab PO QAM 05/19/22 04/26/23 01/20/23 History fluoxetine 20 mg capsule 20 mg PO QAM 01/20/23 04/26/23 04/26/23 09:30 History acetaminophen 500 mg tablet 1,000 mg PO Q6H PRN Pain 04/26/23 04/26/23 Unknown History amlodipine 5 mg tablet 5 mg PO QAM 04/26/23 04/26/23 04/26/23 09:30 History aspirin 81 mg tablet,delayed 81 mg PO QAM 04/26/23 04/26/23 04/26/23 09:30 History release clopidogrel 75 mg tablet 75 mg PO QAM 04/26/23 04/26/23 04/26/23 09:30 History metoprolol succinate 25 mg 12.5 mg PO QAM 04/26/23 04/26/23 04/26/23 09:30 History tablet,extended release 24 hr nitroglycerin 0.4 mg sublingual 0.4 mg sublingual Q5M PRN Chest 04/26/23 04/26/23 Unknown History tablet (Nitrostat) Pain pantoprazole 40 mg tablet,delayed 40 mg PO QAM 04/26/23 04/26/23 04/26/23 09:30 History release (Protonix) prednisone 10 mg tablet 10 mg PO QAM 04/26/23 04/26/23 04/26/23 09:30 History Allergies Allergy/AdvReac Type Severity Reaction Status Date / Time No Known Allergies Allergy Verified 04/26/23 11:18 PFSH Acute PFSH: Medical History Ankle sprain Atherosclerosis of coronary artery Family history of colon cancer HTN (hypertension) Social History Smoking and tobacco status: never smoked Alcohol intake: never Substance/Drug Use: never Vitals/I&O/Wt Last Vital Signs Temp 98.0 F 04/26/23 09:55 Pulse 60 04/26/23 12:20 Resp 16 04/26/23 12:20 BP 120/68 04/26/23 12:20 Pulse Ox 95 04/26/23 12:20 O2 Del Method Room Air 04/26/23 12:20 Weight last 48 hrs Weight 170 lb Physical Exam Narrative: Pubic specific examination: Examination of the right hand demonstrates diffuse swelling noted about the right hand most pronounced at the right thumb. Patient does have subtle tenderness to palpation and erythema particularly on the distal aspect of the thumb with minimal tenderness along the flexor tendon sheath no tenderness over the A1 tosha severely decreased range of motion pain, patient does have pain with passive extension on extreme ranges of motion but does not appear to be out of proportion. She has no A1 tosha tenderness to the index middle ring or small finger she has decreased ability to make a fist. She has negative Tinel's at the carpal tunnel with no pain with pressure on the carpal tunnel she does have some mild swelling noted just proximally to the carpal tunnel. No erythema noted throughout the hand or proximal tracking lymphangitis there is a small scab on the dorsal aspect of the right index finger this is healed and does not appear to be any sign of infectious nature. Data 04/26/23 10:06 04/26/23 10:06 Micro: Microbiology 04/26/23 12:28 Blood Culture - Preliminary Blood SPECIMEN COLLECTED 04/26/23 12:24 Blood Culture - Preliminary Blood SPECIMEN COLLECTED Xray Ortho: My impression: X-rays multiple views right hand reviewed and personally interpreted by myself demonstrating no acute fracture or dislocation there is minimal arthritic changes noted. No acute pathology appreciated. A&P Assessment and plan (1) Tenosynovitis: (2) Swelling of right hand: Plan May have a diet today, n.p.o. at midnight just in case Compressive Yevgeniy wrap and volar splint applied to the right upper extremity Patient placed into a Jules sling for strict elevation overnight Recommend IV Toradol every 6 hours Empiric antibiotics per primary Internal medicine on board as primary and appreciate their medical management and assistance Orthopedics will follow up with patient tomorrow to see how she is responded to conservative treatment Patient presents with swelling of the right hand. She denies any actual puncture wound which would be more likely in the case of a flexor tenosynovitis. She does have some tenderness along the thumb tendon sheath minimal erythema appreciated there however no significant erythema tracking proximally throughout the hand or wrist she does have appreciable swelling. More suspicious of likely an overuse and inflammatory response however given some of her clinical findings as well as elevated white count and inflammatory markers flexor tenosynovitis should be ruled out I would recommend her hospitalization with internal medicine with plan for her to be immobilized with a volar splint compressive sleeve to work on her swelling as well as elevation in a Jules sling would recommend IV Toradol empiric antibiotics and will reassess patient tomorrow morning we will keep her n.p.o. at midnight just in case she consolidates her presents more consistent with a flexor tenosynovitis infection. Appreciate allow me to partake in the care of this patient orthopedics will continue to follow along and see tomorrow. Coding Level of Care Code Acute Code for Aleng Fwd Diagnoses Tenosynovitis M65.9 Swelling of right hand M79.89 Time Spent (min) 45
[2023-04-26] MEDS: vancomycin 1,750 MG/350 ML PIGGYBACK 233.33 MG IV (13:04)
[2023-04-26] MEDS: morphine 4 mg/mL SDV 1 mL IVP (13:14)
--- NOTE | 2023-04-26 14:10 | P.HP_ITS ---
Providers/Chief Complaint Primary Care Provider: Samuel Ryan DO Chief Complaint: swollen hand, painful up to arm History of Present Illness 72-year-old lady, right-handed, with history of CAD, stenting, HTN, recently being investigated for possible autoimmune condition with noted mild elevation of MAGDALENA, positive CH 50, is being referred to rheumatology for assessment and states has an appointment in May locally, has been on prednisone 10 mg daily. Has been working in her garden over the last week, planting multiple plants, working with a shovel. A few days back while playing piano strict began feeling some swelling and soreness ordered right thumb. Presented to ER due to progression of swelling, pain of the right hand, started with a right thumb and volar surface. No direct injury to that area, had a scrape/eschar on the middle finger. Otherwise had been stung by yellow jackets behind the knee, but that has been resolving. Has not had any fever or chills. Denies any prior such episode. Review of Systems Const: Denies: fever(s), chills, body aches or malaise ENMT: Denies: throat pain Card: Denies: chest pain, edema, pre-syncope or dyspnea on exertion Resp: Denies: dyspnea, productive cough, change in phlegm color or hemoptysis GI: Reports: nausea (Slightly 'queasy'); Denies: abdominal pain, vomiting, diarrhea, constipation, hematochezia or melena : Denies: flank pain, urinary frequency or hematuria Musc: Reports: extremity pain and extremity swelling Skin/Breast: Denies: rash Neuro: Denies: headache(s) or confusion Medications/Allergies Home Medications Medication Instructions Recorded Confirmed Last Taken Type cranberry 400 mg capsule 400 mg PO QAM 05/19/22 04/26/23 01/20/23 History multivitamin 1 tab PO QAM 05/19/22 04/26/23 01/20/23 History fluoxetine 20 mg capsule 20 mg PO QAM 01/20/23 04/26/23 04/26/23 09:30 History acetaminophen 500 mg tablet 1,000 mg PO Q6H PRN Pain 04/26/23 04/26/23 Unknown History amlodipine 5 mg tablet 5 mg PO QAM 04/26/23 04/26/23 04/26/23 09:30 History aspirin 81 mg tablet,delayed 81 mg PO QAM 04/26/23 04/26/23 04/26/23 09:30 History release clopidogrel 75 mg tablet 75 mg PO QAM 04/26/23 04/26/23 04/26/23 09:30 History metoprolol succinate 25 mg 12.5 mg PO QAM 04/26/23 04/26/23 04/26/23 09:30 History tablet,extended release 24 hr nitroglycerin 0.4 mg sublingual 0.4 mg sublingual Q5M PRN Chest 04/26/23 04/26/23 Unknown History tablet (Nitrostat) Pain pantoprazole 40 mg tablet,delayed 40 mg PO QAM 04/26/23 04/26/23 04/26/23 09:30 History release (Protonix) prednisone 10 mg tablet 10 mg PO QAM 04/26/23 04/26/23 04/26/23 09:30 History Allergies Allergy/AdvReac Type Severity Reaction Status Date / Time No Known Allergies Allergy Verified 04/26/23 11:18 PFSH Acute PFSH: Medical History Ankle sprain Atherosclerosis of coronary artery Family history of colon cancer HTN (hypertension) Social History Smoking and tobacco status: never smoked Alcohol intake: never Substance/Drug Use: never Lives independently: Yes Household members: spouse Marital status: Vitals/I&O/Wt Last Vital Signs Temp 98.0 F 04/26/23 09:55 Pulse 60 04/26/23 12:20 Resp 18 04/26/23 13:14 BP 120/68 04/26/23 12:20 Pulse Ox 95 04/26/23 13:14 O2 Del Method Room Air 04/26/23 12:20 Weight last 48 hrs Weight 77.111 kg Physical Exam Narrative: Accompanied by Const: COMMON NORMALS: patient oriented x3 and alert GENERAL APPEARANCE: cooperative ORIENTATION/CONSCIOUSNESS: Yes awake OTHER: Uncomfortable HENMT: COMMON NORMALS: oropharynx normal Neck/C-Spine: COMMON NORMALS: no JVD Resp: COMMON NORMALS: normal respiratory effort and clear to auscultation bilaterally AUSCULTATION: clear to auscultation bilaterally Cardio: COMMON NORMALS: no JVD, regular rhythm, S1 normal heart sound present, S2 normal heart sound present and No murmurs present (Cardio) RHYTHM: regular rhythm HEART SOUNDS: S1 normal heart sound present and S2 normal heart sound present GI: COMMON NORMALS: Normal to inspection, nondistended, normoactive bowel sounds present, Soft to palpation and non-tender PALPATION: Yes Soft to palpation Extremity: COMMON NORMALS: no joint enlargement and no pedal edema OTHER: Swelling of the right hand, right distal arm elevated in Jules sling. Fingertips appear perfused, warm to touch. Neuro: COMMON NORMALS: patient oriented x3 and moves all extremities SENSORIUM/ORIENTATION: Yes alert Skin: COMMON NORMALS: no rashes or lesions noted GENERAL SKIN EXAM: no rashes or lesions noted Data 04/26/23 10:06 04/26/23 10:06 Micro: Microbiology 04/26/23 12:28 Blood Culture - Preliminary Blood SPECIMEN COLLECTED 04/26/23 12:24 Blood Culture - Preliminary Blood SPECIMEN COLLECTED A&P Assessment and plan (1) Tenosynovitis: As discussed with orthopedics, ER physician, discussed with her and her family as well, etiology at this time is not clear for the severe tenosynovitis, associated with pain, swelling of the right hand, possible infectious etiology is considered given she has been working in the garden, additionally immunocompromised condition on prednisone. Risk of possible progression, risk of disability, local and/or systemic spread of possible infection. Recently has been evaluated as well for possible autoimmune condition, mildly positive MAGDALENA, positive CH50, pending appointment with rheumatology. However, with consideration of possible infection, discussed risk of worsening infection with local and/or distant spread, in case of additional use of steroid concern for further immune compromise while etiology is unclear. Per discussion orthopedics for elevation in Jules sling, Toradol, empiric antibiotics, reassessment. Does have leukocytosis 13, predominantly neutrophilic 8.45. Afebrile. Elevated ESR, CRP monitor vital signs. Recheck blood counts. Blood culture collected, follow-up. Compartment syndrome was considered by Ortho per discussion. No proximal tracking, nodules, wounds, no suggestion of sporotrichosis. Pain control, requiring IV pain medication currently. Reassess. Antiemetic as needed. (2) Swelling of right hand: As above Plan CAD, prior stenting: Continue aspirin, Plavix, beta-atylor. HTN: Monitor blood pressures. Continue metoprolol. Hold amlodipine for now. Discussed with ER physician, ER documentation reviewed. Orthopedic documentation reviewed. Attestations Medical Necessity Statement*: Admission of over 2 midnights anticipated for assessment management of severe right hand tenosynovitis of possible infectious etiology in a lady on prednisone. Diagnoses Tenosynovitis M65.9 Swelling of right hand M79.89
[2023-04-26] MEDS: fentaNYL 50 mcg/mL INJ 2mL IVP (14:26)
[2023-04-26] MEDS: HYDROmorphone 1 mg/mL INJ 1 mL 0.5 MG IVP ×2 (16:28→20:56)
[2023-04-26] MEDS: heparin 5,000 unit/mL INJ 1 mL 5000 UNIT SUBCUT (16:28)
[2023-04-26] MEDS: piperacillin-tazobactam 3.375 GM in sodium chloride 0.9% (plus) 50 ML IV (20:41)
[2023-04-26] MEDS: acetaminophen 500 mg Tablet 1000 MG PO (22:43)
[2023-04-27] VITALS (8 sets, daily range): BP systolic 113–152; BP diastolic 68–85; PULSE 58–63; RESP 14–18; TEMP 36.3–36.7; O2SAT 91–97
[2023-04-27] MEDS: ketorolac 30 mg/mL INJ 15 MG IVP ×4 (00:35→20:54)
[2023-04-27] MEDS: HYDROmorphone 1 mg/mL INJ 1 mL 0.5 MG IVP ×2 (02:05→06:09)
[2023-04-27 03:33] LABS: Basophils % 0.2 %; Hematocrit 40.2 % (37.0-47.0); Hemoglobin 13.5 g/dL (11.5-15.3); Lymphocytes # 2.2 10^3/uL (0.8-4.8); Lymphocytes % 17.3 %; Mean Corpuscular HGB Conc 33.6 g/dL (30.0-36.0); Mean Corpuscular Hemoglobin 31.3 pg (28.0-34.0); Mean Corpuscular Volume 93.1 fl (81-99); Mean Platelet Volume 9.4 fL (7.4-10.4); Monocytes # 0.5 10^3/uL (0.2-0.9); Monocytes % 4.3 %; Neutrophils # 9.72 10^3/uL (1.8-7.7); Neutrophils % 77.6 %; Nucleated Red Blood Cells % 0 %; Platelet Count 298 10^3/cmm (130-400); Red Blood Count 4.32 10^6/uL (4.1-5.3); Red Cell Distribution Width 13.2 % (12.1-15.1); White Blood Count 12.5 10^3/uL (4.0-10.0)
[2023-04-27 03:57] LABS: Alanine Aminotransferase 36 U/L (0-33); Albumin Level 3.6 g/dL (3.5-5.2); Alkaline Phosphatase 128 U/L (35-105); Anion Gap 15.3 (5-19); Aspartate Amino Transferase 28 U/L (0-32); Blood Urea Nitrogen 21 mg/dL (8-23); Calcium 8.7 mg/dL (8.5-10.5); Carbon Dioxide 22 mmol/L (22-29); Chloride 105 mmol/L (98-107); Creatinine Clr Calc Pharmacy 61.5815; Globulin 2.7 g/dL (1.3-4.6); Glucose 147 mg/dL (65-115); Osmolality Calculated 292 mOsm/kg (285-295); Potassium 4.3 mmol/L (3.5-5.1); Sodium 138 mmol/L (136-145); Total Bilirubin 0.6 mg/dL (0.15-1.2); Total Protein 6.3 g/dL (6.6-8.7)
[2023-04-27] MEDS: piperacillin-tazobactam 3.375 GM in sodium chloride 0.9% (plus) 50 ML IV ×3 (04:50→20:44)
[2023-04-27] MEDS: heparin 5,000 unit/mL INJ 1 mL 5000 UNIT SUBCUT ×2 (04:50→15:42)
[2023-04-27] MEDS: multivitamin therapeutic Tablet 1 TAB PO (05:14)
[2023-04-27] MEDS: aspirin 81 mg EC Tablet PO (05:15)
[2023-04-27] MEDS: fluoxetine 20 mg Capsule PO (05:15)
[2023-04-27] MEDS: clopidogrel 75 mg Tablet PO (05:15)
[2023-04-27] MEDS: pantoprazole DR 40 mg Tablet PO (05:15)
[2023-04-27] MEDS: metoprolol succinate ER (24 HR) 25 mg Tablet 12.5 MG PO (05:15)
[2023-04-27] MEDS: vancomycin 1,000 MG in sodium chloride 0.9% 250 ML 250 MG IV (06:47)
--- NOTE | 2023-04-27 10:22 | PM.PN ---
Subjective Subjective: Patient seen and examined this morning. She states her pain feels improved into her hand. She has been in the Jules sling elevation with IV antibiotics as well as Toradol overnight. She has had considerable resolution of swelling in her hands and states her hand feels much better as she is able to make considerably improvement in her range of motion. Still mild swelling noted but considerable improvement when nonoperative treatment. This point time she is been n.p.o. since midnight no indication for surgical intervention she still has a mildly elevated white count. At this point time no surgery today she may have a diet continue with elevation with Jules sling conservative treatment. Vitals/I&O/Wt Last Vital Signs Temp 97.7 F 04/27/23 07:12 Pulse 58 L 04/27/23 07:12 Resp 18 04/27/23 07:12 BP 145/83 04/27/23 07:12 Pulse Ox 94 04/27/23 07:12 O2 Del Method Room Air 04/27/23 07:12 04/26/23 04/27/23 04/27/23 22:59 06:59 14:59 Intake Total 520 / 520 74.583 / 594.583 250 / 250 Balance 520 / 520 74.583 / 594.583 250 / 250 Weight last 48 hrs Weight 170 lb Physical Exam Narrative: Orthopedic specific examination Examination the right hand Jules sling and volar splint taken down patient has considerable resolution of her swelling. She still has some mild swelling of the thumb but she has no tenderness to palpation over the A1 tosha she has considerable improvement in her range of motion of the thumb she has no tenderness to palpation over the A1 pulleys or web spaces throughout the rest of the digits she has no tenderness to palpation over the carpal tunnel with negative median nerve compression test. She still has subtle amount of swelling at the volar aspect of her wrist with no signs of erythema noted throughout the hand or wrist she has no signs of compartment syndrome as her hand is soft and compressible as well as her forearm is soft and compressible. Significant resolution and swelling. Data 04/27/23 03:07 04/27/23 03:07 Micro: Microbiology 04/26/23 12:28 Blood Culture - Preliminary Blood SPECIMEN COLLECTED 04/26/23 12:24 Blood Culture - Preliminary Blood SPECIMEN COLLECTED A&P Assessment and plan (1) Swelling of right hand: (2) Infection of hand: (3) Tenosynovitis: Plan Patient seen and examined this morning she has had considerable resolution of her swelling at this point in time I feel she is responding well and appropriately to conservative approach of Toradol antibiotics as well as elevation and immobilization with a Jules sling I see no indication for any surgical intervention today she may have a diet. We will keep her n.p.o. again at midnight tonight and we will recheck her CRP tomorrow to see how she is responding to conservative treatment from a laboratory standpoint at this point in time though she has no signs of compartment syndrome her swelling is considerably decreased she has no erythema and she is already had significant improvement in her hand range of motion. Orthopedics will continue to follow along. Appreciate allow me to partake in the care of this patient. Attestations Medical Necessity Statement*: Right hand tenosynovitis possibly infectious Coding Level of Care Code Acute Code for [facility] Fwd Diagnoses Swelling of right hand M79.89 Infection of hand L08.9 Tenosynovitis M65.9 Time Spent (min) 20
--- NOTE | 2023-04-27 10:24 | PC.NURSE ---
Dr. Rowell verbally ordered Benedryl 25 mg PO Q6H and change Dilaudid 0.5 IVP from Q4H to Q2H.
[2023-04-27] MEDS: diphenhydrAMINE 25 mg Capsule PO (11:50)
--- NOTE | 2023-04-27 15:56 | P.PN_ITS ---
Subjective Subjective: Today she is feeling better.? Swelling has come down and most of her hand apart from the right wrist.? Has been assessed by Ortho.? Dressing change.? Has been having some minimal tingling/numbness in the fingertips but apart from that is doing much better. Vitals/I&O/Wt Last Vital Signs Temp 97.7 F 04/27/23 11:41 Pulse 61 04/27/23 11:41 Resp 18 04/27/23 11:41 BP 132/76 04/27/23 11:41 Pulse Ox 96 04/27/23 11:41 O2 Del Method Room Air 04/27/23 11:41 04/27/23 04/27/23 04/27/23 06:59 14:59 22:59 Intake Total 74.583 / 594.583 730 / 730 Balance 74.583 / 594.583 730 / 730 Weight last 48 hrs Weight 77.111 kg Physical Exam Narrative: Accompanied by Const: COMMON NORMALS: patient oriented x3 and alert GENERAL APPEARANCE: cooperative ORIENTATION/CONSCIOUSNESS: Yes awake OTHER: Today appears comfortable, in much better spirits, much more alert. HENMT: COMMON NORMALS: oropharynx normal Neck/C-Spine: COMMON NORMALS: no JVD Resp: COMMON NORMALS: normal respiratory effort and clear to auscultation bilaterally AUSCULTATION: clear to auscultation bilaterally Cardio: COMMON NORMALS: no JVD, regular rhythm, S1 normal heart sound present, S2 normal heart sound present and No murmurs present (Cardio) RHYTHM: regular rhythm HEART SOUNDS: S1 normal heart sound present and S2 normal heart sound present GI: COMMON NORMALS: Normal to inspection, nondistended, normoactive bowel sounds present, Soft to palpation and non-tender PALPATION: Yes Soft to palpation Extremity: COMMON NORMALS: no joint enlargement and no pedal edema OTHER: Improvement of swelling of the right hand, right distal arm elevated in Jules sling. Fingertips appear perfused, warm to touch. Neuro: COMMON NORMALS: patient oriented x3 and moves all extremities SENSORIUM/ORIENTATION: Yes alert Skin: COMMON NORMALS: no rashes or lesions noted GENERAL SKIN EXAM: no rashes or lesions noted Data 04/27/23 03:07 04/27/23 03:07 Micro: Microbiology 08/05/23 12:28 Blood Culture - Preliminary Blood NEGATIVE TO DATE 04/26/23 12:24 Blood Culture - Preliminary Blood NEGATIVE TO DATE 04/26/23 21:30 MRSA Culture - Final Nose A&P Assessment and plan (1) Tenosynovitis: Discussed with orthopedics and her . She is showing significant improvement today. Decrease in swelling. Persistent swelling in right wrist. Otherwise symptoms much improved. Afebrile. Is noted to still have leukocytosis with neutrophilia. She reports that symptoms in her left arm had improved significantly with resolution of the tingling/numbness, other concerns. So far we have not continued her prednisone for concern of possible infection which cannot yet be excluded entirely in the right hand. Discussed risk with immunocompromise with steroids, particularly increasing or larger doses. Discussed since otherwise symptoms are doing well in the left arm, consideration of holding steroids entirely until can be reassessed and treated for potential infection in the right hand. Would consider completion of antibiotic course for the right hand and continued arrangements for evaluation by rheumatology for additionally possible underlying autoimmune condition, considered alternative options, and consensus is this may be the safest plan at current time. Otherwise blood culture preliminary so far negative. Please follow-up cultures to completion. MRSA PCR also noted, negative. We will stop vancomycin. No sign of compartment syndrome at this time. Etiology still not entirely clear, at risk of worsening of possible infection, local spread, local injury and disability, systemic spread, sepsis, potential life-threatening infection. Alternatively possibility of autoimmune condition, and/or otherwise overuse/overwork with recent intensive work in the garden. She did sustain multiple scrapes over the right arm, though none directly in the location of the swelling itself. WBC noted 12.5, predominantly neutrophilic 9.72. Afebrile. Request follow-up blood counts. We will request follow-up ESR, CRP. No proximal tracking, nodules, wounds, no suggestion of sporotrichosis. Pain control, requiring IV pain medication currently. Has required multiple doses of Dilaudid. Frequency escalated back to 60 every 2 hours. Monitor. Add naloxone as needed in case of respiratory depression. Continues with Toradol. Reassess. Antiemetic as needed. (2) Swelling of right hand: As above Plan CAD, prior stenting: Continue aspirin, Plavix, beta-taylor. HTN: BP at goal. Monitor blood pressures. Continue metoprolol. Hold amlodipine for now. Discussed with case management. Attestations Medical Necessity Statement*: Continue admission for assessment management of tenosynovitis in a lady with immunocompromise on steroids, possible autoimmune condition, suspected possible infectious etiology, requiring IV pain control. Diagnoses Tenosynovitis M65.9 Swelling of right hand M79.89
[2023-04-28] VITALS: BP 131/77; PULSE 63; RESP 16; TEMP 36.7; O2SAT 95
[2023-04-28] MEDS: ketorolac 30 mg/mL INJ 15 MG IVP ×2 (02:59→10:21)
[2023-04-28] MEDS: piperacillin-tazobactam 3.375 GM in sodium chloride 0.9% (plus) 50 ML IV (03:02)
[2023-04-28] MEDS: heparin 5,000 unit/mL INJ 1 mL 5000 UNIT SUBCUT (03:07)
[2023-04-28 03:53] VITALS: BP 119/53; PULSE 61; RESP 16; TEMP 36.7; O2SAT 95
[2023-04-28 04:58] LABS: Basophils % 0.4 %; Eosinophils # 0.3 10^3/uL (0.0-0.8); Eosinophils % 2.6 %; Hematocrit 38.4 % (37.0-47.0); Hemoglobin 12.9 g/dL (11.5-15.3); Lymphocytes # 2.9 10^3/uL (0.8-4.8); Lymphocytes % 28.4 %; Mean Corpuscular HGB Conc 33.6 g/dL (30.0-36.0); Mean Corpuscular Hemoglobin 31.6 pg (28.0-34.0); Mean Corpuscular Volume 94.1 fl (81-99); Mean Platelet Volume 9.6 fL (7.4-10.4); Monocytes # 0.8 10^3/uL (0.2-0.9); Monocytes % 8.3 %; Neutrophils # 6.02 10^3/uL (1.8-7.7); Neutrophils % 59.9 %; Nucleated Red Blood Cells % 0 %; Platelet Count 300 10^3/cmm (130-400); Red Blood Count 4.08 10^6/uL (4.1-5.3); Red Cell Distribution Width 13.5 % (12.1-15.1); White Blood Count 10.1 10^3/uL (4.0-10.0)
[2023-04-28 05:20] LABS: Erythrocyte Sedimentation Rate 30 mm/hr (0-15)
[2023-04-28] MEDS: aspirin 81 mg EC Tablet PO (05:34)
[2023-04-28] MEDS: multivitamin therapeutic Tablet 1 TAB PO (05:34)
[2023-04-28] MEDS: fluoxetine 20 mg Capsule PO (05:34)
[2023-04-28] MEDS: clopidogrel 75 mg Tablet PO (05:35)
[2023-04-28] MEDS: metoprolol succinate ER (24 HR) 25 mg Tablet 12.5 MG PO (05:35)
[2023-04-28] MEDS: pantoprazole DR 40 mg Tablet PO (05:35)
[2023-04-28 05:45] LABS: Alanine Aminotransferase 25 U/L (0-33); Albumin Level 3.2 g/dL (3.5-5.2); Alkaline Phosphatase 101 U/L (35-105); Anion Gap 14.6 (5-19); Aspartate Amino Transferase 20 U/L (0-32); Blood Urea Nitrogen 28 mg/dL (8-23); C Reactive Protein 39.7 mg/L (0.0-4.9); Calcium 8.4 mg/dL (8.5-10.5); Carbon Dioxide 25 mmol/L (22-29); Chloride 106 mmol/L (98-107); Globulin 2.4 g/dL (1.3-4.6); Glucose 95 mg/dL (65-115); Osmolality Calculated 297 mOsm/kg (285-295); Potassium 4.6 mmol/L (3.5-5.1); Sodium 141 mmol/L (136-145); Total Bilirubin 0.6 mg/dL (0.15-1.2); Total Protein 5.6 g/dL (6.6-8.7)
--- NOTE | 2023-04-28 06:47 | P.PN_ITS ---
Subjective Subjective: Patient seen and examined this morning splint taken down she has had continual improvement with conservative treatment continued decrease in swelling and increased range of motion as well as minimal pain. WBC count is downtrending to 10.1 Vitals/I&O/Wt Last Vital Signs Temp 98.1 F 04/28/23 03:53 Pulse 61 04/28/23 03:53 Resp 16 04/28/23 03:53 BP 119/53 04/28/23 03:53 Pulse Ox 95 04/28/23 03:53 O2 Del Method Room Air 04/28/23 03:53 04/27/23 04/27/23 04/28/23 14:59 22:59 06:59 Intake Total 730 / 730 530 / 1260 50 / 1310 Balance 730 / 730 530 / 1260 50 / 1310 Weight last 48 hrs Weight 170 lb Physical Exam Narrative: Orthopedic specific examination Examination the right hand Jules sling and volar splint taken down patient has considerable resolution of her swelling. She minimal swelling of the thumb but she has no tenderness to palpation over the A1 tosha she has considerable improvement in her range of motion of the thumb she has no tenderness to palpati on over the A1 pulleys or web spaces throughout the rest of the digits she has no tenderness to palpation over the carpal tunnel with negative median nerve compression test. She minimal of swelling at the volar aspect of her wrist with no signs of erythema noted throughout the hand or wrist she has no signs of compartment syndrome as her hand is soft and compressible as well as her forearm is soft and compressible. Significant resolution of swelling. Data 04/28/23 04:07 04/28/23 04:07 Micro: Microbiology 04/26/23 12:28 Blood Culture - Preliminary Blood NEGATIVE TO DATE 04/26/23 12:24 Blood Culture - Preliminary Blood NEGATIVE TO DATE 04/26/23 21:30 MRSA Culture - Final Nose A&P Assessment and plan (1) Swelling of right hand: (2) Infection of hand: (3) Tenosynovitis: Plan Patient was seen and examined this morning continues to have improvement of her swelling. No erythema or acute signs of infection her CRP number has continued to downtrend as well as her WBC count indicating appropriate response to conservative treatment at this point time no acute orthopedic surgical interventions required at this time. Orthopedic surgery team will sign off patient at this time and follow peripherally if there is any questions pertaining to patient's care for further contact myself Dr. Rowell. Orthopedic discharge directions will be in patient's chart. Patient can follow-up with primary care in outpatient setting with a referral to orthopedics if she continues to have issues. Patient understands and agrees with current plan. All questions answered. Attestations Medical Necessity Statement*: Right hand tenosynovitis possibly infectious Coding Level of Care Code Acute Code for [facility] Fwd Diagnoses Swelling of right hand M79.89 Infection of hand L08.9 Tenosynovitis M65.9 Time Spent (min) 15
--- NOTE | 2023-04-28 07:19 | MR_ITS ---
WS: [id number] MRI RIGHT HAND with and without CONTRAST. COMPARISON: Radiographs 04/26/2023 Multiplanar, multisequence imaging is performed with and without contrast. MultiHance 17 mL IV. Portions of the hand are suboptimally imaged due to technique. No marrow edema or fracture is identif ied. No erosions. Metacarpal heads are normal. There is a very small amount of edema along the dorsal surface of the hand and involving the flexor retinaculum. No focal pockets of fluid. The tendons as visualized are normal with no displacement. Postcontrast imaging there is no significant enhancement or focal collection. No osteomyelitis. MR/MR hand RT wo/w con [id number] IMPRESSION: 1. No abscess or osteomyelitis. 2. Very mild soft tissue edema along the dorsal surfaces of the hand.
[2023-04-28 07:22] VITALS: BP 126/7; PULSE 53; RESP 16; TEMP 36.7; O2SAT 95
[2023-04-28] MEDS: gadobenate dimeglumine 20 mL vial IV (08:18)
[2023-04-28] MEDS: diphenhydrAMINE 25 mg Capsule PO (10:14)
--- NOTE | 2023-04-28 17:29 | P.DS_ITS ---
Discharge Providers Date of Admission: 04/26/23 11:37 Date of Discharge: April 28, 2023 Attending Provider at Admission: Casa Lucas Attending Provider at Discharge: Blanquita Zavaleta MD Primary Care Provider: Samuel Ryan DO Diagnoses at Discharge Discharge Diagnosis (1) Swelling of right hand: Status: Acute (2) Infection of hand: Status: Acute (3) Tenosynovitis: Status: Acute Reason for Visit Reason for Visit: swollen hand, painful up to arm Hospital Course Hospital Course Patient is a 72-year-old lady admitted on 04/26 with complaint of diffuse swelling to her right wrist and hand that she began noticing a few days ago.? 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 Since then she has noticed progressive swelling and worsening pain affecting the volar aspect of her wrist and her entire hand.? Patient states she has had a referral to rheumatology placed by her primary care provider as there was some concern for rheumatoid arthritis-she is waiting on this appointment.? She denies any cuts, scrapes, puncture wounds recently, however there were noticeable abrasions on her right middle finger and small callus on plantar aspect of her hand. She states the hand was never erythematous.? She has not been running fevers.? According to patient has been working excessively outside in the garden and she had been stung by some yellow jackets recently.? She has several cats on her property but is not involved in petting or caring for them. No h/o animal bites or scratches. Although her swelling was not entirely clear, however differentials included possible cellulitis versus dactylitis. There was some concern for possible tenosynovitis initially, however MRI performed today ruled out this possibility. There were no signs of compartment syndrome. She received empiric treatment with piperacillin/tazobactam and scheduled NSAIDs during the course of admission which appeared to have improved her hand swelling. Tick panel was ordered as pending as potentially Lyme disease could be associated with dactylitis. Patient has been discharged given her clinical improvement on p.o. Augmentin and doxycycline to complete a 7-day course of presumptive treatment for possible cellulitis. Additionally she has been instructed to use prednisone 20 mg a day for the next 5 days and then bring down the dose to prednisone 10 mg daily as she has been doing for the past 2 months for possibility of autoimmune disorder for which rheumatology evaluation is currently pending. (She has a positive MAGDALENA titer 1:80). Expedited appointment was requested per rheumatology clinic at discharge. Physical Exam Narrative: General: No acute distress, AO x3 HEENT: PERRLA, pupils bilaterally equal and reactive, pallors not present Chest: Normal vesicular breath sounds, no added sounds, equal good air entry bilaterally CVS: S1-S2 regular, no murmurs, no tachycardia, no gallops, no rubs Abdomen: Soft, nontender, no organomegaly, bowel sounds present Neuro: No focal deficits, no facial deformity, AO x3, power 5/5 in all limbs Extremities: Right hand no gross erythema. Mild swelling compared to the other hand. ROM appears intact Discharge Data Studies Completed and Pending Completed Studies During Hospitalization Category Date Time Status XR hand RT min 3V* [id number] Stat Exams 04/26/23 10:31 Completed MR hand RT wo/w con [id number] Routine MRI 04/28/23 07:19 Completed Pending at discharge Category Date Time Status Bartonella Species AB(IgG,IgM) Routine Lab 04/28/23 10:35 Received Blood Culture Stat Lab 04/26/23 12:28 Results Tick Panel Routine Lab 04/28/23 10:30 Received Radiology Impressions Hand X-Ray 04/26/23 10:31 IMPRESSION: No acute findings. Hand MRI 04/28/23 07:19 IMPRESSION: 1. No abscess or osteomyelitis. 2. Very mild soft tissue edema along the dorsal surfaces of the hand. Laboratory Results WBC 10.1 10^3/uL (4.0-10.0) H 04/28/23 04:07 RBC 4.08 10^6/uL (4.1-5.3) L 04/28/23 04:07 Hgb 12.9 g/dL (11.5-15.3) 04/28/23 04:07 Hct 38.4 % (37.0-47.0) 04/28/23 04:07 MCV 94.1 fl (81-99) 04/28/23 04:07 MCH 31.6 pg (28.0-34.0) 04/28/23 04:07 MCHC 33.6 g/dL (30.0-36.0) 04/28/23 04:07 RDW 13.5 % (12.1-15.1) 04/28/23 04:07 Plt Count 300 10^3/cmm (130-400) 04/28/23 04:07 MPV 9.6 fL (7.4-10.4) 04/28/23 04:07 Neut % (Auto) 59.9 % 04/28/23 04:07 Lymph % (Auto) 28.4 % 04/28/23 04:07 Butler % (Auto) 8.3 % 04/28/23 04:07 Eos % (Auto) 2.6 % 04/28/23 04:07 Baso % (Auto) 0.4 % 04/28/23 04:07 Neut # (Auto) 6.02 10^3/uL (1.8-7.7) 04/28/23 04:07 Lymph # (Auto) 2.9 10^3/uL (0.8-4.8) 04/28/23 04:07 Butler # (Auto) 0.8 10^3/uL (0.2-0.9) 04/28/23 04:07 Eos # (Auto) 0.3 10^3/uL (0.0-0.8) 04/28/23 04:07 Baso # (Auto) 0.0 10^3/uL (0.0-0.1) 04/28/23 04:07 Nucleated RBC % (auto) 0 % 04/28/23 04:07 Nucleated RBCs # 0.0 /100WBC 04/28/23 04:07 ESR 30 mm/hr (0-15) H 04/28/23 04:07 Sodium 141 mmol/L (136-145) 04/28/23 04:07 Potassium 4.6 mmol/L (3.5-5.1) 04/28/23 04:07 Chloride 106 mmol/L (98-107) 04/28/23 04:07 Carbon Dioxide 25 mmol/L (22-29) 04/28/23 04:07 Anion Gap 14.6 (5-19) 04/28/23 04:07 BUN 28 mg/dL (8-23) H 04/28/23 04:07 Creatinine 0.9 mg/dL (0.5-0.9) 04/28/23 04:07 GFR Calculation Not Reportable 04/28/23 04:07 Glucose 95 mg/dL (65-115) 04/28/23 04:07 Calculated Osmolality 297 mOsm/kg (285-295) H 04/28/23 04:07 Calcium 8.4 mg/dL (8.5-10.5) L 04/28/23 04:07 Total Bilirubin 0.6 mg/dL (0.15-1.2) 04/28/23 04:07 AST 20 U/L (0-32) 04/28/23 04:07 ALT 25 U/L (0-33) 04/28/23 04:07 Alkaline Phosphatase 101 U/L (35-105) 04/28/23 04:07 C-Reactive Protein 39.7 mg/L (0.0-4.9) H 04/28/23 04:07 Total Protein 5.6 g/dL (6.6-8.7) L 04/28/23 04:07 Albumin 3.2 g/dL (3.5-5.2) L 04/28/23 04:07 Globulin 2.4 g/dL (1.3-4.6) 04/28/23 04:07 Vitals Last Vital Signs Temp 98.0 F 04/28/23 07:22 Pulse 53 L 04/28/23 07:22 Resp 16 04/28/23 07:22 BP 126/7 04/28/23 07:22 Pulse Ox 95 04/28/23 07:22 O2 Del Method Room Air 04/28/23 03:53 Discharge Plan Discharge Patient Disposition: Home Condition: Stable Prescriptions: New amoxicillin-pot clavulanate 875-125 mg tablet 1 tab PO BID 5 Days Qty: 10 0RF doxycycline hyclate 100 mg capsule 100 mg PO BID 7 Days Qty: 14 0RF Continued acetaminophen 500 mg Tablet 1,000 mg PO Q6H PRN (Reason: Pain) Nitrostat 0.4 mg Tablet, Sublingual 0.4 mg SUBLINGUAL Q5M PRN (Reason: Chest Pain) Rx Instructions: do not exceed 3 doses per episode prednisone 10 mg tablet 10 mg PO QAM Rx Instructions: for autoimmune disease clopidogrel 75 mg tablet 75 mg PO QAM amlodipine 5 mg tablet 5 mg PO QAM aspirin 81 mg tablet,delayed release (DR/EC) 81 mg PO QAM Protonix 40 mg tablet,delayed release (DR/EC) 40 mg PO QAM metoprolol succinate 25 mg tablet extended release 24 hr 12.5 mg PO QAM multivitamin Tablet 1 tab PO QAM cranberry 400 mg Capsule 400 mg PO QAM Rx Instructions: administer with a meal fluoxetine 20 mg capsule 20 mg PO QAM Discharge Orders: Discharge Order (Routine); Ordered 04/28/23 Ordered By: Blanquita Zavaleta Referrals: Max Ba MD [Physician] - 2 weeks (patient has appt with rheumatology in May- please check if can be seen sooner - hospital admission for dactylitis ) Samuel Ryan DO [Primary Care Provider] - 05/06/23 12:20 pm Discharge Diet: Usual diet Discharge Activity: Resume usual activity Patient Instructions: Amoxicillin/Clavulanate Potassium (By mouth) (Augmentin, Augmentin..., Tenosynovitis (ED), Opioid Safety Activity Restrictions/Additional Instructions: Take prednisone 20 mg daily for 5 days, then reduce dose back to usual home dose of 10 mg daily Discharge Attestations Time Spent in Discharge Care*: greater than 30 min Quality Metrics Clinical Quality Measures [ No reported AMI, CVA or VTE this stay] Coding Level of Care Code Acute Code for Chg Fwd Diagnoses Swelling of right hand M79.89 Infection of hand L08.9 Tenosynovitis M65.9
[2023-04-29 13:00] LABS: Lyme AB Screen <0.90 index
[2023-05-01 16:45] LABS: E. Chaffeensis AB IGG <1:64; E. Chaffeensis AB IGM <1:20
[2023-05-01 17:08] LABS: RMSF IGG NOT DETECTED; RMSF IGM NOT DETECTED
[2023-05-03 15:19] LABS: Bartonella Henselae IgG AB NEGATIVE; Bartonella Henselae IgM AB NEGATIVE; Bartonella Quintana IgG AB NEGATIVE
[2023-06-18 16:29] LABS: Bartonella Quintana IgM AB NEGATIVE
== END 2023-04-28 11:45 | disposition home or self-care (01) | DRG 603 ==
LOC: ER 11:37 → MEDSURG 14:51
PROVIDERS: Physician Assistant; Admitting Provider Internal Medicine; Emergency Provider Emergency Medicine; PCP Family Medicine; Visit Provider Student in an Organized Health Care Education/Training Program
DX: L03.113 Cellulitis of right upper limb (principal); I25.10 Atherosclerotic heart disease of native coronary artery without angina pectoris; I10 Essential (primary) hypertension; Z79.82 Long term (current) use of aspirin; Z79.02 Long term (current) use of antithrombotics/antiplatelets
CPT/HCPCS: 36415; 73130; 73220; 80053; 85025; 85651; 86140; 86611; 86618; 86666; 86757; 87040; 87641; 96365; 96367; 96372; 96375; 96376; 99285; A9577; J1100; J1170; J1644; J1885; J2270; J2543; J3010; J3370; J3372; J7050

== ENCOUNTER → 2023-05-12 15:01 | Outpatient (BNVA) | payer MEDICARE, OTHER, SELFPAY | PROVIDERS: PCP Family Medicine; Visit Provider Internal Medicine Cardiovascular Disease | DX: I25.10 Atherosclerotic heart disease of native coronary artery without angina pectoris (principal); I10 Essential (primary) hypertension | CPT/HCPCS: 99214 ==

== ENCOUNTER → 2023-06-03 10:29 | Outpatient (BNVA) | payer MEDICARE, OTHER, SELFPAY | PROVIDERS: PCP Family Medicine; Referring Provider Family Medicine; Visit Provider Internal Medicine Rheumatology | DX: Z79.899 Other long term (current) drug therapy (principal); M19.90 Unspecified osteoarthritis, unspecified site; Z11.1 Encounter for screening for respiratory tuberculosis; Z11.59 Encounter for screening for other viral diseases; Z71.85 Encounter for immunization safety counseling; R76.8 Other specified abnormal immunological findings in serum | CPT/HCPCS: 36415; 82306; 82310; 83735; 84100; 84132; 86200; 86431; 86480; 86704; 86803; 87340; 99204 ==

== ENCOUNTER → 2023-08-05 12:39 | Outpatient (BNVA) | payer MEDICARE, OTHER, SELFPAY | PROVIDERS: PCP Family Medicine; Visit Provider Internal Medicine Rheumatology | DX: M19.90 Unspecified osteoarthritis, unspecified site (principal); Z79.899 Other long term (current) drug therapy; Z71.85 Encounter for immunization safety counseling; R76.8 Other specified abnormal immunological findings in serum | CPT/HCPCS: 99214 ==

== ENCOUNTER → 2023-09-03 10:07 | Outpatient (BNVA) | payer MEDICARE, OTHER, SELFPAY | PROVIDERS: PCP Family Medicine; Visit Provider Internal Medicine Cardiovascular Disease | DX: I25.10 Atherosclerotic heart disease of native coronary artery without angina pectoris (principal); I10 Essential (primary) hypertension | CPT/HCPCS: 99214 ==

== ENCOUNTER → 2023-11-18 12:44 | Outpatient (BNVA) | payer MEDICARE, OTHER, SELFPAY | PROVIDERS: PCP Family Medicine; Visit Provider Internal Medicine Rheumatology | DX: Z79.899 Other long term (current) drug therapy (principal); M19.90 Unspecified osteoarthritis, unspecified site; Z71.85 Encounter for immunization safety counseling; R76.8 Other specified abnormal immunological findings in serum; M72.2 Plantar fascial fibromatosis; M06.041 Rheumatoid arthritis without rheumatoid factor, right hand; M06.042 Rheumatoid arthritis without rheumatoid factor, left hand | CPT/HCPCS: 36415; 80076; 82565; 85025; 86140; 99214 ==

== ENCOUNTER → 2024-04-06 14:22 | Outpatient (BNVA) | payer MEDICARE, OTHER, SELFPAY | PROVIDERS: PCP Family Medicine; Visit Provider Internal Medicine Rheumatology | DX: M06.041 Rheumatoid arthritis without rheumatoid factor, right hand (principal); M06.042 Rheumatoid arthritis without rheumatoid factor, left hand; M72.2 Plantar fascial fibromatosis; R76.8 Other specified abnormal immunological findings in serum; Z79.899 Other long term (current) drug therapy; Z71.85 Encounter for immunization safety counseling | CPT/HCPCS: 36415; 80076; 82565; 85025; 85651; 86140; 99214 ==

== ENCOUNTER → 2024-05-31 14:33 | Outpatient (BNVA) | payer MEDICARE, OTHER, SELFPAY | PROVIDERS: PCP Family Medicine; Visit Provider Internal Medicine | DX: I25.10 Atherosclerotic heart disease of native coronary artery without angina pectoris (principal); R73.09 Other abnormal glucose; F41.9 Anxiety disorder, unspecified; I11.0 Hypertensive heart disease with heart failure; I50.9 Heart failure, unspecified | CPT/HCPCS: 99214 ==

== ENCOUNTER → 2024-10-12 12:46 | Outpatient (BNVA) | payer MEDICARE, OTHER, SELFPAY | PROVIDERS: PCP Family Medicine; Visit Provider Internal Medicine Rheumatology | DX: M06.041 Rheumatoid arthritis without rheumatoid factor, right hand (principal); M06.042 Rheumatoid arthritis without rheumatoid factor, left hand; Z79.899 Other long term (current) drug therapy; Z71.85 Encounter for immunization safety counseling; R76.8 Other specified abnormal immunological findings in serum; M72.2 Plantar fascial fibromatosis | CPT/HCPCS: 36415; 80076; 82565; 85025; 85652; 86140; 99214 ==

== ENCOUNTER → 2025-03-22 15:18 | Outpatient (BNVA) | payer MEDICARE, OTHER, SELFPAY | PROVIDERS: PCP Family Medicine; Visit Provider Internal Medicine | DX: I25.10 Atherosclerotic heart disease of native coronary artery without angina pectoris (principal); R73.09 Other abnormal glucose; F41.9 Anxiety disorder, unspecified; I11.0 Hypertensive heart disease with heart failure; I50.9 Heart failure, unspecified | CPT/HCPCS: 99213 ==

== ENCOUNTER → 2025-04-19 13:11 | Outpatient (BNVA) | payer MEDICARE, OTHER, SELFPAY | PROVIDERS: PCP Family Medicine; Visit Provider Internal Medicine Rheumatology | DX: Z79.899 Other long term (current) drug therapy (principal); Z71.85 Encounter for immunization safety counseling; R76.8 Other specified abnormal immunological findings in serum; M72.2 Plantar fascial fibromatosis; M06.041 Rheumatoid arthritis without rheumatoid factor, right hand; M06.042 Rheumatoid arthritis without rheumatoid factor, left hand | CPT/HCPCS: 36415; 80076; 82565; 85025; 85651; 86140; 99214 ==

== ENCOUNTER → 2025-04-28 08:40 | Outpatient (BNVA) | payer MEDICARE, OTHER, SELFPAY | PROVIDERS: PCP Family Medicine; Visit Provider Dermatology | DX: L29.89 Other pruritus (principal); S40.911A Unspecified superficial injury of right shoulder, initial encounter; X58.XXXA Exposure to other specified factors, initial encounter; D69.2 Other nonthrombocytopenic purpura; L82.1 Other seborrheic keratosis; L73.8 Other specified follicular disorders; L81.4 Other melanin hyperpigmentation; D23.72 Other benign neoplasm of skin of left lower limb, including hip; R60.0 Localized edema | CPT/HCPCS: 99203 ==

== ENCOUNTER → 2025-07-28 09:34 | Outpatient (BNVA) | payer MEDICARE, OTHER, SELFPAY | PROVIDERS: PCP Family Medicine; Visit Provider Dermatology | DX: L29.89 Other pruritus (principal); S40.911A Unspecified superficial injury of right shoulder, initial encounter; D69.2 Other nonthrombocytopenic purpura; R20.2 Paresthesia of skin; L82.1 Other seborrheic keratosis; X58.XXXA Exposure to other specified factors, initial encounter | CPT/HCPCS: 99213 ==